=== PATIENT | male | born 1965 | race Caucasian/White ===

== ENCOUNTER 2018-09-24 14:37 | Inpatient (IN) ==
--- NOTE | 2018-09-24 16:00 | Diag Imaging Result Doc PS360 ---
EXAM: CHEST-PORTABLE 09/24/2018 HISTORY: weak TECHNIQUE: AP upright chest COMMENT: There is no evidence of acute cardiac or pulmonary disease and there are no previous studies available for comparison. IMPRESSION: No evidence of acute disease. Electronically signed by Andrea Goldberg 09/24/2018 3:58 PM
[2018-09-24 16:02] LABS: BASO# 0.01 X1000 (0.0-0.2); BASO% 0.1 % (0.0-0.8); EOS# 0.13 X1000 (0.0-0.7); EOS% 0.7 % (0.0-10.0); HEMOGLOBIN 13.2 g/dL (14.0-18.0); IMM GRAN# 0.14 X1000 (0.0-0.04); IMM GRAN% 0.7 % (0.0-0.5); LYMPH# 2.13 X1000 (1.2-3.4); LYMPH% 10.8 % (20.5-51.1); MCH 28.7 PG (27-31); MCHC 34.7 g/dL (33-37); MCV 82.6 FL (81-99); MONO% 10.1 % (1.7-9.3); MPV 9.5 FL (7.4-10.4); NEUT# 15.36 X1000 (1.4-6.5); NEUT% 77.6 % (42.2-75.2); PLT 285 X1000 (130-400); RDW 11.7 % (11.5-14.5); WBC 19.77 X1000 (4.8-10.8)
--- NOTE | 2018-09-24 16:02 | Diag Imaging Result Doc PS360 ---
EXAM: THORACIC SPINE 09/24/2018 HISTORY: injur TECHNIQUE: Thoracic spine AP and lateral four views COMMENT: There are bridging osteophytes throughout the thoracic spine. The pedicles appear to be intact. There is no evidence of fracture or subluxation. There is a large soft tissue gas collection posteriorly seen on the lateral view. This is at least 10 cm in diameter. IMPRESSION: Posterior soft tissue gas collection. Degenerative disc disease. No evidence of acute bony abnormality. Electronically signed by Andrea Goldberg 09/24/2018 3:59 PM
--- NOTE | 2018-09-24 16:10 | Diag Imaging Result Doc PS360 ---
EXAM: CT HEAD W/O CONTRAST 09/24/2018 HISTORY: syncope TECHNIQUE: This exam was performed using automated exposure control, adjustment of mA or kV according to patient size, and/or use of iterative reconstruction technique. COMMENT: There is no evidence of mass effect, bleed, or abnormal extra-axial fluid collection. The visualized paranasal sinuses are clear. The calvarium is intact. IMPRESSION: No evidence of acute intracranial disease. Electronically signed by Andrea Goldberg 09/24/2018 4:08 PM
[2018-09-24 16:21] LABS: ESTIMATED GFR > 60
[2018-09-24 16:22] LABS: AGAP 13; ALB/GLOB RATIO 0.7; ALBUMIN 2.6 g/dL (3.5-5.0); ALKALINE PHOSPHATASE 103 U/L (32-122); BUN 9 mg/dL (8-22); CALCIUM 8.1 mg/dL (8.8-10.2); CHLORIDE 87 mmol/L (98-107); CK PROFILE 214 U/L (24-204); COSMO 259; CREATININE 0.8 mg/dL (0.7-1.2); GLUCOSE 232 mg/dL (70-104); GOT 18 U/L (10-34); GPT 11 U/L (10-44); POTASSIUM 3.4 mmol/L (3.5-5.1); SODIUM 126 mmol/L (136-145); TCO2 26 mmol/L (25-35); TOTAL BILIRUBIN 0.76 mg/dL (0.20-1.00); TOTAL PROTEIN 6.3 g/dL (6.3-8.3)
[2018-09-24 16:57] LABS: CK INDEX 0.6 (0.0-2.5); CK-MB 1.34 ng/mL (0.0-5.0)
--- NOTE | 2018-09-24 16:59 | EKG Report ---
Test Performed on : 09/24/2018 3:07:29 PM Test Reason : ED. No order in [place] Blood Pressure : / mmHG Vent. Rate : 102 BPM Atrial Rate : 102 BPM P-R Int : 126 ms QRS Dur : 094 ms QT Int : 358 ms P-R-T Axes : 037 -09 023 degrees QTc Int : 466 ms Sinus tachycardia. Otherwise normal ECG No previous ECGs available Unconfirmed Result
[2018-09-24] MEDS ORDERED: VANCOMYCIN 1 GM/NS 1 GM/250 ML IVPB IV ONE ×2 (17:03→22:00)
[2018-09-24] MEDS ORDERED: NS 1,000 ML IV ONE (17:11)
[2018-09-24 17:34] LABS: URINE SOURCE CLEAN CATCH
[2018-09-24 17:44] LABS: BILIRUBIN URINE NEGATIVE (NEGATIVE); BLOOD URINE MODERATE (NEGATIVE); COLOR YELLOW; GLUCOSE URINE TRACE mg/dL (NEGATIVE); KETONE URINE NEGATIVE (NEGATIVE); LEUKOCYTES URINE NEGATIVE (NEGATIVE); NITRITE URINE NEGATIVE (NEGATIVE); PROTEIN URINE TRACE mg/dL (NEGATIVE); SP GRAVITY URINE 1.015; TURBIDITY URINE CLEAR (CLEAR); UROBILINOGEN URINE 12 mg/dL (NORMAL)
[2018-09-24 17:46] LABS: UR EPITHELIAL CELLS <10 /HPF (<10); URINE BACTERIA NEGATIVE /HPF; URINE RBC <10 /HPF (<10); URINE WBC <10 /HPF (<10)
[2018-09-24] MEDS ORDERED: XYLOCAINE 1% ONE (17:48)
[2018-09-24] MEDS ORDERED: ZOSYN 3.375 GM in NS 50 ML IV ONE (17:50)
--- NOTE | 2018-09-24 18:05 | Diag Imaging Result Doc PS360 ---
EXAM: CT THORAX/ABD/PELVIS W/CON - 09/24/2018 HISTORY: abscess TECHNIQUE: CT thorax and abdomen/pelvis with intravenous contrast COMPARISON: None. FINDINGS: CT thorax: There is a subcutaneous fluid and gas collection at the back which has its epicenter near the midline. This measures approximate 6.4 cm in maximum AP dimension by 11.5 cm in transverse dimension. This is compatible with abscess. This begins superiorly at approximately the T6 level and extends inferiorly to approximately the T10 level. There is no obvious involvement of the underlying thoracic spine The lungs appear clear. There is no pleural effusion or pneumothorax identified. There is no mediastinal or hilar adenopathy identified. CT abdomen/pelvis: There are no substantial abnormalities of the liver, spleen, adrenal glands, or pancreas identified. There are no calcified gallstones or pericholecystic inflammation identified. The bilateral kidneys enhance homogeneously. There is no hydronephrosis. There are nonspecific small retroperitoneal lymph nodes. There are lumbar spine degenerative changes noted. There is no evidence of bowel obstruction. There is mild colonic diverticulosis. There is no evidence of diverticulitis. There is no intra-abdominal abscess identified. There is no free air or free fluid identified. There is mild subcutaneous edema at the posterior midline. There is no evidence of bowel obstruction. IMPRESSION: CT thorax: Approximately 6.4 cm in AP dimension by 11.5 cm in transverse dimension abscess in posterior subcutaneous tissues (back). This has its epicenter near the midline and extends from approximately the T6 level to the T10 level. There is no other evidence of acute disease within the thorax. CT abdomen/pelvis: Mild subcutaneous edema at posterior midline. Nonspecific small retroperitoneal lymph nodes. Mild uncomplicated colonic diverticulosis. No other evidence of acute disease within the abdomen/pelvis. This exam was performed using automated exposure control, adjustment of mA or kV according to patient size, and/or use of iterative reconstruction technique. Electronically signed by Tyler Coats 09/24/2018 6:02 PM
--- NOTE | 2018-09-24 18:27 | PROVIDER DOCUMENTATION ---
This chart was entered by Stacey Tello Scribe, acting as scribe for Robbie Camarillo MD. HPI-General Adult - General Chief Complaint: Syncope Stated Complaint: SYNCOPE Time Seen by Provider: 09/24/18 15:02 Source: patient - History of Present Illness -Gen Adult Nature of Presenting Problems: 53 yowm presents to the ed via pov from neighbors that checked on him today. pt sts he has had x2 syncopal episodes the 1st one on friday and the 2nd on friday night. pt lives alone and sts after second syncopal episode pt went to bed and has been just laying down. pt denies any medical hx and sts he takes no medications. pt on exam has foul odor about him and has bruising noted to rt thoracic back that looks to be healing. pt denies back pain on exam and c/o weakness and fatigue. Location of Pain/Injury: reports: generalized (weakness) Quality of Pain: reports: other (denies pain cc weakness) Severity: reports: moderate Onset/Duration: reports: 6 days ago Timing: reports: still present, intermittent Context/Activities at Onset: reports: light activity Modifying Factors: improves with: nothing Associated Symptoms: reports: fatigue, fever/chills (100.4), loss of appetite, syncope (x2), weakness. denies: back/neck pain, chest pain, cough, diaphoresis, diarrhea, dizziness, EENT symptoms, nausea, shortness of breath, vomiting Similar Symptoms Previously?: No Recently seen or treated by another doctor?: No Review of Systems - Adult - REVIEW OF SYSTEMS - ADULT Constitutional: reports: see HPI, chills, fever, fatique Eyes: reports: no symptoms reported Ears, Nose, Mouth & Throat: reports: no symptoms reported Cardiovascular: reports: syncope. denies: chest pain, palpitations Respiratory: denies: shortness of breath, wheezing Gastrointestinal: reports: poor appetite. denies: abdominal pain, diarrhea, nausea, vomiting Genitourinary: reports: no symptoms reported Musculoskeletal: denies: back pain, neck pain Integumentary: reports: no symptoms reported Neurological: reports: see HPI, loss of balance, syncope. denies: ataxia, dizziness/vertigo, headache/migraines, slurred speech, tremors Psychiatric: reports: no symptoms reported Endocrine: reports: no symptoms reported Hematologic/Lymphatic: reports: no symptoms reported Allergic/Immunologic: reports: no symptoms reported All Other Systems: Reviewed and Negative Past History - Adult - PAST MEDICAL HISTORY-ADULT Review of Records: reports: Old Records Reviewed, Nursing Assessment Review, Med ications Reviewed, Social history reviewed & non-contributory. Major Childhood Illnesses: reports: denies history Cardiovascular: reports: denies history Respiratory: reports: denies history Gastrointestinal: reports: denies history Genitourinary: reports: denies history Musculoskeletal: reports: denies history Hand Dominance: Right Handed Neurological: reports: denies history Psychiatric: reports: denies history Endocrine/Immune: reports: denies history Other Conditions: reports: denies history - PRIOR SURGERIES/PROCEDURES Surgical/Procedure History: reports: none (pt denies any medical hx or sx) - IMMUNIZATION STATUS Childhood Immunizations: See Nurse Assessment Flu Vaccine: See Nurse Assessment - FAMILY HISTORY Family History: reviewed, not pertinent - SOCIAL HISTORY Smoking: quit greater than 1 year Substance Use: denies Alcohol Use Frequency: never Living Situation: alone Physical Exam-General - PHYSICAL EXAM-ADULT Initial Vital Signs Reviewed: Yes (fever-100.4 HR-107 ) - CONSTITUTIONAL General Appearance: alert, mild distress, obese, anxious (tearful) - EYES Eyes: PERRL/EOMI, pink conjunctivae - HEAD, EARS, NOSE, MOUTH & THROAT HENMT: moist mucous membranes, dental decay - NECK Neck: full range of motion, normal inspection - RESPIRATORY Respiratory: chest non-tender, lungs clear, normal breath sounds - CARDIOVASCULAR Cardiovascular: normal peripheral pulses, tachycardia (107) - GASTROINTESTINAL (ABDOMEN) Abdominal Exam: normal bowel sounds, non tender, soft, no organomegaly, no pulsatile mass - LYMPHATIC Lymphatic: no adenopathy - MUSCULOSKELETAL Back Exam: no CVA tenderness, no vertebral tenderness, ecchymosis (thoracic) Extremity: normal range of motion, normal inspection, no calf tenderness, normal capillary refill - SKIN Integumentary: normal turgor, warm/dry, pallor - NEUROLOGIC Neurologic: grossly normal, no motor/sensory deficits - PSYCHIATRIC Psych/Mental Status: normal mood/affect, normal thought content, normal thought process, oriented x 3, tearful Progress - PLAN OF CARE/RESULTS Progress/Plan/Lab Results: Vital Signs - 8 hr 09/24/18 14:40 Temperature 100.4 F H Pulse Rate 107 H Respiratory Rate 21 Blood Pressure 127/79 O2 Sat by Pulse Oximetry 96 Result Diagrams: 09/24/18 15:21 09/24/18 15:21 - REASSESSMENT Reassessment #1 Time Reassessed: 16:17 (pt is resting in bed) Status: improving Reassessment #3 Time Reassessed: 17:31 (pt unchanged) Status: unchanged Reassessment Comment: dr francisco at bedside Reassessment #2 Time Reassessed: 17:14 (still resting in bed) Status: unchanged - EKG 1 Time of EKG reading by physician:: 15:07 EKG Read and Signed by:: Robbie Camarillo EKG Interpretation (*Must complete 3 of following elements*): Normal Rate: 102 Rhythm: sinus tachycardia [place]: normal QRS: normal [place] Interval: normal ST Wave: normal - XRAY 1 XRAY: Bilateral XRAY Study: Thoracic Spine Impression: See EMR Report (EXAM: THORACIC SPINE 09/24/2018 HISTORY: injur TECHNIQUE: Thoracic spine AP and lateral four views COMMENT: There are bridging osteophytes throughout the thoracic spine. The pedicles appear to be intact. There is no evidence of fracture or subluxation. There is a large soft tissue gas collection posteriorly seen on the lateral view. This is at least 10 cm in diameter. IMPRESSION: Posterior soft tissue gas collection. Degenerative disc disease. No evidence of acute bony abnormality. Electronically signed by Andrea Goldberg 09/24/2018 3:59 PM 09/24/18 1460 Interpreting Physician: Andrea Goldberg MD Dictated Date/Time: 09/24/18 3529 cc: Robbie Camarillo MD; None,PCP) 2 XRAY: Bilateral XRAY Study: Chest Impression: See EMR Report (EXAM: CHEST-PORTABLE 09/24/2018 HISTORY: weak TECHNIQUE: AP upright chest COMMENT: There is no evidence of acute cardiac or pulmonary disease and there are no previous studies available for comparison. IMPRESSION: No evidence of acute disease. Electronically signed by Andrea Goldberg 09/24/2018 3:58 PM 09/24/18 8708 Interpreting Physician: Andrea Goldberg MD Dictated Date/Time: 09/24/18 8342 cc: Robbie Camarillo MD; None,PCP) - CT/MRI 1 CT Study: Head Impression: See EMR Report (EXAM: CT HEAD W/O CONTRAST 09/24/2018 HISTORY: syncope TECHNIQUE: This exam was performed using automated exposure control, adjustment of mA or kV according to patient size, and/or use of iterative reconstruction technique. COMMENT: There is no evidence of mass effect, bleed, or abnormal extra-axial fluid collection. The visualized paranasal sinuses are clear. The calvarium is intact. IMPRESSION: No evidence of acute intracranial disease. Electronically signed by Andrea Goldberg 09/24/2018 4:08 PM 09/24/18 1608 Interpreting Physician: Andrea Goldberg MD Dictated Date/Time: 09/24/18 1607 cc: Robbie Camarillo MD; None,PCP) 2 CT Study: other (thoracic back) Impression: See EMR Report (waiting on results) - CONSULTS/PCP/HOSPITALIST Notification #1 *Consult/PCP/Hospitalist*: dr francisco sx Time Discussed: 17:13 Reason/Comments: phone consult Consult Disposition: Will see in ED Time Discussed: 18:00 Reason/Comments: Hospitalist Consult Disposition: Will see in ED Departure - Departure Date of Disposition Decision: 09/24/18 Time of Disposition Decision: 18:00 DIAGNOSIS: Abscess, Weakness Fever Qualifiers: Encounter type: initial encounter Disposition: ADMITTED INPATIENT 09 Certified Medical Emergency: Emergent Condition: Serious Referrals and Follow-Ups: None,PCP [Primary Care Provider] - - Critical Care Note This patient required my direct & personal management of CC.: No Attestation - Physician/ AGUSTIN Attestation Patient care was provided by Advanced Practice Provider:: No The physician spent face to face time with patient:: Yes Advanced Practice Provider documentation review:: Supervising physician onsite and consulted in the evaluation and care of this patient. The physician did have a face to face encounter with the patient. This chart was documented by the indicated scribe, (Stacey Tello Scribe) and accurately reflects the services I performed and decisions made by me, Robbie Camarillo MD, as attested by the provider's signature.
[2018-09-24] MEDS ORDERED: ZOFRAN IV PRN (20:45)
[2018-09-24] MEDS ORDERED: VANCOMYCIN IV PER PHARMACY MISC SCH (20:45)
[2018-09-24] MEDS ORDERED: TYLENOL PO PRN (20:45)
[2018-09-24] MEDS ORDERED: CLINDAMYCIN 900 MG/D5W 900 MG/50 ML IVPB IV ONE (21:00)
[2018-09-24] MEDS ORDERED: CLINDAMYCIN 900 MG/NS 900 MG/50 ML IVPB IV ONE (21:00)
[2018-09-24] MEDS: NS 1,000 ML IV SCH (21:33)
[2018-09-24] MEDS: POTASSIUM CHLORIDE 20 MEQ/SWI 20 MEQ/100 ML IVPB IV SCH (21:33)
[2018-09-24] MEDS: HUMALOG SUBQ SCH (21:33)
--- NOTE | 2018-09-24 22:04 | HISTORY AND PHYSICAL ---
CHIEF COMPLAINT: Syncope. HISTORY OF PRESENT ILLNESS: This is a 53-year-old gentleman who reports being outside doing yard work in the heat Friday with very little to drink. He had a sudden syncopal episode. States since then he has had generalized weakness. Despite this, he went to work at his new job Friday. He was outside pressure washing in the heat with very little water or fluid intake. He stated he was also working in a building with no air conditioning. He and another co-worker "fell out." Since then, he has got progressively weaker. Today, he states that a co-worker came to check on him, found him lying around, having trouble getting out of bed and insisted he come to the emergency room. He presented with a heart rate of 107 and a temperature of 100.[address] of the head revealed no evidence of intracranial disease. He did have a thoracic spine x-ray which showed an area with posterior soft tissue gas collection. CT of the chest, abdomen, pelvis was performed which revealed a 6.4 cm x 11.5 abscess in the posterior subcutaneous tissues in the back with its epicenter near the midline and extends from T6 to T10. CT of the abdomen and pelvis reveal nonspecific small retroperitoneal lymph nodes. He was evaluated by Dr. Anderson who lanced and performed a bedside I and D. The patient tolerated well. Blood cultures were obtained. He has been started on vancomycin, Zosyn and clindamycin along with IV hydration. He was given vancomycin, Zosyn and clindamycin in the emergency room along with a liter bolus and he is being admitted for further evaluation and treatment. PAST MEDICAL HISTORY: He denies. SURGICAL HISTORY: Denies. SOCIAL HISTORY: He denies alcohol, tobacco, or illicit drug use. ALLERGIES: The patient denies. HOME MEDICATIONS: He denies. Note the patient has had not had insurance for quite some time. He has not seen a physician in many years. REVIEW OF SYSTEMS: Discussed with the patient with pertinent positives stated in the HPI. He denied any dizziness, chest pain, palpitations, any shortness of breath, cough, fever, chills, recent weight loss or weight gain, nausea, vomiting, diarrhea, constipation, any black or bloody vomitus or stools, any hematuria, dysuria, frequency, urgency. PHYSICAL EXAMINATION: GENERAL: This is a 53-year-old gentleman who is sitting up in the bed in no distress. VITAL SIGNS: Blood pressure is 127/79 with a heart rate of 107, respirations are 22, temperature is 100.4 degrees oral with room air saturations 96%. EYES: Pupils equal, round, react to light. EOMs are intact. Sclerae are anicteric. HEENT: Head is normocephalic, atraumatic. Mucous membranes are moist. NECK: Supple with trachea midline. CARDIOVASCULAR: Regular rate and rhythm. S1 and S2 are appreciated. He has no lower extremity edema. Calves are nontender to palpation bilateral with peripheral pulses palpable x4 extremities. PULMONARY: Breath sounds are clear. No increased work of breathing noted. Chest rises and falls symmetric with respiration. CHEST WALL: Nontender to palpation. GASTROINTESTINAL: Abdomen is soft, nontender, nondistended with bowel sounds in all 4 quadrants. GENITOURINARY: He has no CVA or suprapubic tenderness. NEUROLOGIC: He is alert and oriented x3. SKIN: Warm and dry. He does have an area to he has midback at approximately T5 to T10 or 11 that is noted to be ecchymotic. It is firm. LABORATORIES: WBC is 19.7 with hemoglobin 13.2, hematocrit 38, platelets 285,000. Sodium is 126, potassium 3.4, BUN 9, creatinine 0.8 with glucose of 232. Troponin is negative. Urinalysis reveals moderate blood although he has got less than 10 microscopic red blood cells, white blood cells and epithelial cells. Blood cultures are pending. ASSESSMENT AND PLAN: 1. Syncope. Causes multifactorial. The patient was working out in the heat. This could have been heat exhaustion. He also was found to have an abscess. White count sepsis could play a part. He will be placed on telemetry. We will monitor. We will get an echocardiogram in the morning. We will continue trend troponins. 2. Post back abscess. Dr. Anderson has been consulted. We will consult Dr. Aponte. We will continue vancomycin, Zosyn and clindamycin for now and further antibiotics will be culture driven and per Dr. Aponte. 3. Hyponatremia. We will supplement this. Continue with IV fluids and recheck labs in the morning. 4. Hyperglycemia. The patient states that he has never had a diagnosis of diabetes. We will check a hemoglobin A1c in the morning and trend his labs. 5. Generalized weakness. We will consult Physical Therapy. Further treatments pending hospital course. Dictated by KATHRINE Estevez for Cheo Munoz MD cc: KATHRINE Estevez
--- NOTE | 2018-09-25 00:49 | GENERAL SURGERY CONSULTATION ---
DATE: 09/24/2018 REQUESTING PHYSICIAN: Emergency Department. REASON FOR CONSULTATION: Back abscess. HISTORY OF PRESENT ILLNESS: A 53-year-old gentleman who came in with multiple syncopal episodes since Friday, when he was outside working. He passed out 2 times and he was found by his family member and brought to the emergency department. He also developed some swelling in his back that has been going on for several weeks. They worked him up and a chest x-ray initially showed an air- fluid level in his back, and he had a CT scan that showed an abscess. I was asked to weigh an opinion. PAST MEDICAL HISTORY: None reported. PAST SURGICAL HISTORY: None. SOCIAL HISTORY: Former smoker. ALLERGIES: None recorded. CURRENT MEDICATIONS: List being compiled. FAMILY HISTORY: Reviewed with the patient and noncontributory. REVIEW OF SYSTEMS: A full 10-point review of systems obtained and negative, except those specified in HPI. PHYSICAL EXAMINATION: Vital Signs: Patient is currently febrile, temperature of 100.4 degrees. Pulse 107, blood pressure 127/69, O2 saturation 96% on room air. General: No acute distress, but appears sick. A male, looks stated age. HEENT: Normocephalic, atraumatic. Pupils equal, round, reactive to light. Mucous membranes moist. Oropharynx benign. Neck: Supple. Trachea midline. Cardiovascular: Some mild tachycardia. Lungs: Grossly clear. Abdomen: Soft, nontender, nondistended. Extremities: Moves all extremities. Skin: Wound and swelling noted to the midback. No real erythema to the skin. Some bruising and ecchymosis noted. Tender to palpation. Vascular: All extremities perfused. Neurologic: Grossly intact. LABORATORY AND DIAGNOSTIC DATA: White blood count is 19, hematocrit 38, platelet count 285,000. Sodium is 126, potassium is 34, chloride is 87, glucose 232. CT scan independently reviewed and radiology report reviewed. ASSESSMENT AND PLAN: A 53-year-old gentleman with back abscess. 1. Back abscess. At this time, we will plan on drainage at the bedside. Discussed with the patient the risks, benefits, and alternatives, and we will proceed. The patient needs to be admitted by the hospitalist given his hyponatremia. We will get the hospitalist to admit him and put him on IV antibiotics. 2. Hyponatremia. At this time, needs to be resuscitated. We will follow with the hospitalist. cc: Santos Anderson MD
--- NOTE | 2018-09-25 00:53 | OPERATIVE NOTE ---
PROCEDURE DATE: 09/24/2018 PREOPERATIVE DIAGNOSIS: Back abscess. POSTOPERATIVE DIAGNOSIS: Intramuscular back abscess. PROCEDURE: Incision and drainage of intramuscular back abscess measuring 11.5 cm. SURGEON: Santos Anderson MD. PHOTOENGRAVING FINISHER: None. ANESTHESIA: Local administered by the surgeon. FINDINGS: Purulence drained and sent for culture. BRIEF HISTORY: A 53-year-old male noted to have a back abscess on imaging. It was felt that he would benefit from drainage. The risks, benefits, and alternatives were discussed. All questions answered. DESCRIPTION OF PROCEDURE: After informed consent was obtained, patient remained in the ED bed. His back was prepped and draped in sterile fashion. Using a local anesthetic, we anesthetized the skin. After a formal time-out, we made an initial cruciate incision to enter into the abscess cavity. We used blunt dissection with hemostat probe and a pop into the capsule. We drained a significant amount of purulence, which we sent for culture. We continued to probe the area and drained more purulence. I stick my finger in and broke up all loculations. We continued to drain a significant amount of purulence. I was able to explore essentially all the cavity with my finger. It did not seem to extend down to the bone. We then placed half-inch iodoform into the wound and placed a sterile dressing. The patient tolerated the procedure and remained in the ER. cc: Santos Anderson MD
[2018-09-25] MEDS: ZOSYN 3.375 GM in NS 50 ML IV SCH ×2 (02:34→08:33)
[2018-09-25] MEDS: NORCO-7.5 PO PRN ×2 (02:35→22:37)
[2018-09-25] MEDS: CLINDAMYCIN 900 MG/D5W 900 MG/50 ML IVPB IV SCH ×2 (03:31→08:37)
[2018-09-25] MEDS: POTASSIUM CHLORIDE 20 MEQ/SWI 20 MEQ/100 ML IVPB IV SCH (04:31)
[2018-09-25] MEDS: HUMALOG SUBQ SCH ×4 (06:44→21:52)
[2018-09-25 09:03] LABS: BASO# 0.03 X1000 (0.0-0.2); BASO% 0.2 % (0.0-0.8); EOS# 0.06 X1000 (0.0-0.7); EOS% 0.3 % (0.0-10.0); HEMATOCRIT 37.5 % (42.0-52.0); HEMOGLOBIN 12.6 g/dL (14.0-18.0); IMM GRAN# 0.14 X1000 (0.0-0.04); IMM GRAN% 0.7 % (0.0-0.5); LYMPH# 2.72 X1000 (1.2-3.4); LYMPH% 14.4 % (20.5-51.1); MCH 28.5 PG (27-31); MCHC 33.6 g/dL (33-37); MCV 84.8 FL (81-99); MONO# 1.43 X1000 (0.11-0.59); MONO% 7.6 % (1.7-9.3); MPV 9.4 FL (7.4-10.4); NEUT# 14.45 X1000 (1.4-6.5); NEUT% 76.8 % (42.2-75.2); PLT 305 X1000 (130-400); RBC 4.42 XMIL (4.7-6.1); RDW 12.1 % (11.5-14.5); WBC 18.83 X1000 (4.8-10.8)
[2018-09-25 09:17] LABS: HEMOGLOBIN A1C 9.1 % (4.8-6.0)
[2018-09-25 09:20] LABS: AGAP 15; ALB/GLOB RATIO 0.9; ALBUMIN 2.6 g/dL (3.5-5.0); ALKALINE PHOSPHATASE 92 U/L (32-122); BUN 12 mg/dL (8-22); CALCIUM 7.5 mg/dL (8.8-10.2); CHLORIDE 94 mmol/L (98-107); COSMO 268; CREATININE 0.9 mg/dL (0.7-1.2); ESTIMATED GFR > 60; GLUCOSE 171 mg/dL (70-104); GOT 20 U/L (10-34); GPT 11 U/L (10-44); POTASSIUM 4.3 mmol/L (3.5-5.1); SODIUM 132 mmol/L (136-145); TCO2 23 mmol/L (25-35); TOTAL BILIRUBIN 0.69 mg/dL (0.20-1.00); TOTAL PROTEIN 5.5 g/dL (6.3-8.3)
[2018-09-25] MEDS: VANCOMYCIN 2,000 MG in NS 500 ML IV SCH ×2 (10:25→22:36)
[2018-09-25] MEDS: NS 1,000 ML IV SCH ×2 (12:16→15:37)
--- NOTE | 2018-09-25 14:36 | GENERAL SURGERY PROGRESS NOTE ---
DATE: 09/25/2018 SUBJECTIVE: Patient seems to be feeling better as far as the back is concerned. OBJECTIVE: Vital Signs: Patient is currently afebrile. His blood pressure most recently is 96/45, although his heart rate is in the 80s. He seems to be doing fine. HEENT: Normocephalic, atraumatic. Pupils equal, round, reactive to light. Mucous membranes moist. Oropharynx benign. Neck: Supple, trachea midline. Cardiovascular: Regular rate and rhythm. Lungs: Grossly clear. Abdomen: Soft, nontender, nondistended. Back: Wound with packing in place. Otherwise looks improved. Extremities: Moves all extremities. Neurologic: Grossly intact. Skin: As noted above. Vascular: All extremities perfused. LABORATORY: None this morning as of yet. ASSESSMENT/PLAN: 53-year-old gentleman status post incision and drainage of intramuscular back abscess. 1. Status post drainage. At this time, continue IV antibiotics as done by the hospitalist. He is on vancomycin and Zosyn and clindamycin. 2. Can likely stop 1 of those antibiotics but will defer to infectious disease has been consulted. 3. Otherwise, continue current treatment and defer to the hospitalist who has medical management. cc: Santos Anderson MD
--- NOTE | 2018-09-25 20:47 | ECHO REPORT ---
ORDER DATE: 09/24/2018 INTERPRETING PHYSICIAN: Tab Lancaster MD. REQUESTING PHYSICIAN: Cheo Munoz MD. INDICATIONS: Syncope, abscess, sepsis, morbid obesity. M-MODE MEASUREMENTS: Left ventricle end diastole: 5.6 cm. Left ventricle end systole: 3.9 cm. Posterior wall: 1.1 cm. Interventricular septum: 1.1 cm. Left atrium: 3.8 cm. Aortic root diameter: 3.2 cm. The study was difficult. Optison was utilized to maximize visualization of the endocardium. SUMMARY OF 2-DIMENSIONAL IMAGIN. The left ventricular chamber appears to be mildly enlarged. Left ventricular systolic function appears to be at the lower limits of normal and perhaps mildly decreased in the range of 50-55%. 2. The atria appear to be normal. Aortic valve was normal. Color flow mapping unremarkable. 3. The tricuspid valve looks normal. Color flow mapping unremarkable. 4. Pulmonary pressure is normal. 5. Mitral valve is normal. Color flow mapping unremarkable. 4. The pulse wave Doppler of mitral inflow is normal. 5. The tissue Doppler of septal and lateral mitral annulus is also normal. 6. There is no diastolic dysfunction. 7. The pulmonary valve is unremarkable. 8. There is no pericardial effusion, mass or thrombus. Clinical correlation is recommended. cc: Tab Lancaster MD [facility]
--- NOTE | 2018-09-25 21:38 | PROGRESS NOTE ---
DATE: 09/25/2018 INTERVAL HISTORY: The patient reports significant improvement in back discomfort with drainage of abscess and antibiotics overnight. No further dizziness, lightheadedness, or syncope. No events on telemetry overnight. No further fevers since just after arrival. Initial blood cultures are positive for gram-positive cocci. REVIEW OF SYSTEMS: A 12 point review of systems is negative except as per Interval History. LABS: WBC 18.8, hemoglobin 12.6, hematocrit 37.5, platelets 305,000. Sodium 132, potassium 4.3, bicarb 23, glucose 171 to 215. Hemoglobin A1c 9.1. VITAL SIGNS: T-max is 99.6 degrees, pulse 83, respirations 20, blood pressure 103/56, O2 saturation 98% on room air. PHYSICAL EXAMINATION: General: No acute distress, obese. Vital Signs: As above. HEENT: Normocephalic, atraumatic. Moist mucous membranes. No cervical adenopathy. Cardiovascular: Regular rate and rhythm. No murmurs noted. Pulmonary: Clear to auscultation bilaterally. No rhonchi, rales, or wheezes noted. Abdomen: Obese, soft, nontender, nondistended. Bowel sounds positive. Extremities: Peripheral pulses decreased, but intact. No clubbing, cyanosis. Neurologic: Cranial nerves grossly intact. Mild global weakness, somewhat improved. No focal deficits identified. Psychiatric: Normal mood and affect. Awake, alert, oriented x3. Skin: Area of I and D in the mid back with dressing, with fairly significant sanguineous to purulent drainage. Still some mild induration around the area. ASSESSMENT AND PLAN: 1. Syncope, likely multifactorial, with dehydration and sepsis. No further dizziness or other issues with hydration and antibiotics. Cardiac workup unremarkable. 2. Large back abscess. On imaging, appeared to extend almost to the spine, but after surgical evaluation, Surgery does not feel that it extended to the bone. Still with significant drainage. Started initially on vancomycin, Zosyn, and clindamycin. Based on culture data, will likely discontinue clindamycin and possibly Zosyn, depending on Infectious Disease recommendations. 3. Gram-positive bacteremia. Patient with initial blood cultures growing gram- positive cocci. Suspect this will end up being staphylococcus, but will see what eventually speciates. Repeat blood culture cultures in the morning and monitor. 4. Hyponatremia. Likely related to dehydration. Improving with intravenous fluids. Continue intravenous fluids and monitor. Improving at an appropriate rate. 5. Diabetes. New diagnosis. A1c 9.1. Discussed this new diagnosis with the patient. We will likely discharge on metformin and possibly a second oral agent. 6. Generalized weakness. Somewhat improved with fluid and treatment of sepsis as above. Physical Therapy consulted. We will see how he does. If he continues to improve, then may be able to go home. Otherwise, will consider rehab. 7. Morbid obesity. Recommended diet and exercise. 8. Hypokalemia, improved with repletion. Monitor. [facility]
--- NOTE | 2018-09-25 22:04 | INFECTIOUS DISEASE CONSULT REP ---
DATE: 09/25/2018 CONCLUSION: Mr. Haines has gram-positive cocci growing in 1 out of 2 of his blood cultures, as well as gram-positive cocci noted to the Gram stain of the culture to his back. He is status post incision and drainage of an intramuscular back abscess by Dr. Anderson, which was noted to have an extensive sized cavity. RECOMMENDATIONS: He has been started on IV vancomycin per pharmacy dosing, as well as IV clindamycin and Zosyn. At this point, due to the presence of gram-positive cocci both in the Gram stain and in the blood culture, we will discontinue Zosyn and clindamycin, and continue IV vancomycin as ordered. The blood culture is positive in 1 out of 2, so this may possibly be a contaminant, or it may be a staphylococcus which is most often seen in this type of wound. We will await the final cultures and recheck blood work Friday morning. These plans have been discussed with and recommended by Dr. Aponte. DISCUSSION: Mr. Haines states he has been feeling weak and lightheaded for the past week, and has had some near syncopal episodes which have eventually brought him into the hospital. He admits to not having seen any doctors for about 10 years. He states that several weeks ago, he started noticing a swollen area to his back. However, he had been ignoring it. PAST MEDICAL HISTORY/REVIEW OF SYSTEMS: Constitutional: The patient has been weak, dizzy, and lightheaded recently. He has had no falls or traumas. HEENT: No headaches or sinus pain. He does have some vision problems with blurriness. Denies any issues with hearing or tinnitus. Endocrine: He denies any history of diabetes or thyroid issues. Cardiovascular: Denies any chest pain, palpitations, or shortness of breath. Respiratory: He has had occasional smoker's cough. States he quit smoking a few months ago with a 30 pack-year history. No wheezing or pain with deep breathing. Gastrointestinal: He denies any nausea, vomiting, diarrhea, or constipation. He does have infrequent bouts of acid reflux. : He states he has developed incontinence, but no hematuria, dysuria, or history of urinary tract infection. Musculoskeletal: He denies any arthritis, joint or muscle pains, but does have occasional lower back pain after a long shift at work. Psychiatric: He denies any anxiety, depression, or psychiatric diagnoses. Hematologic: He denies any history of iron deficiency or blood disorders. Neurologic: He denies any seizures, stroke, or mini stroke. MEDICAL HISTORY: Positive for morbid obesity. He does have a hemoglobin A1c elevation with a new diagnosis of diabetes mellitus, which has probably been present in the long- term. PAST SURGICAL HISTORY: He has had a cyst removed from his scalp several years ago. INFECTIOUS DISEASE: He has had walking pneumonia in the past after having the flu several years ago. No history of urinary tract infection or bacteria which was resistant to antibiotics. SOCIAL HISTORY: He is a 30 pack-year smoker who quit several months ago. He denies any alcohol or illicit drug use. 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 FAMILY HISTORY: His father of a stroke. His mother has dementia. LABORATORY AND X-RAY: Today, his white count is 18.83, hemoglobin 12.6, platelet count 305,000. Creatinine is 0.9. Estimated GFR is greater than 60. Hemoglobin A1c is 9.1. Total bilirubin is 0.69, AST 20, ALT 11, alkaline phosphatase 92. There are blood cultures pending. One of 2 has shown gram-positive cocci. Gram stain of the back drainage shows gram-positive cocci with white blood cells 2+. Culture is pending. EKG shows sinus tachycardia. Chest, abdomen, and pelvis CT showed clear lungs with subcutaneous fluid and gas collection to the back. Head CT also showed no evidence of acute intracranial disease. ALLERGIES: No known allergies. HOME MEDICATIONS: The patient states he has no prescriptions, but takes occasional BC powder at home for aches and pains. PHYSICAL EXAMINATION: Vital Signs: Temperature is 97.5 degrees, pulse rate 75, respiratory rate 18, blood pressure 111/68, O2 saturation is 96% on room air. General: This is a morbidly obese, chronically ill-appearing, middle-aged gentleman. He is lying in the bed on his right lateral side, currently in no acute distress. HEENT: Atraumatic, normocephalic. Oral mucous membranes are pink and moist. Conjunctivae are pink. Neck: Supple. Trachea is midline. Cardiovascular: Heart rate and rhythm are regular. Normal sinus rhythm on the monitor. Respiratory: Lung sounds are clear to auscultation bilaterally. No work of breathing is noted. Abdomen: Soft, obese, and nontender. Bowel sounds are active. Integumentary: Skin is warm and dry. I peeled back the dressing to the right upper back where there is an incision. I have taken a culture and a moderate amount of blood and pus came out of the abscess, which is very tender to the patient. Neurologic: He is awake, alert and oriented. Able to ambulate independently. Thank you for allowing us to see Mr. Haines. Dictated by KATHRINE Gardner for Juan Miguel Aponte MD cc: Juan Miguel Aponte MD [facility]
[2018-09-26 06:59] LABS: BASO# 0.01 X1000 (0.0-0.2); BASO% 0.1 % (0.0-0.8); EOS# 0.17 X1000 (0.0-0.7); EOS% 1.4 % (0.0-10.0); HEMATOCRIT 33.9 % (42.0-52.0); HEMOGLOBIN 11.4 g/dL (14.0-18.0); IMM GRAN% 0.8 % (0.0-0.5); LYMPH# 2.32 X1000 (1.2-3.4); LYMPH% 18.6 % (20.5-51.1); MCH 28.4 PG (27-31); MCHC 33.6 g/dL (33-37); MCV 84.5 FL (81-99); MONO# 0.87 X1000 (0.11-0.59); MPV 9.2 FL (7.4-10.4); NEUT# 8.98 X1000 (1.4-6.5); NEUT% 72.1 % (42.2-75.2); PLT 306 X1000 (130-400); RBC 4.01 XMIL (4.7-6.1); RDW 11.9 % (11.5-14.5); WBC 12.45 X1000 (4.8-10.8)
[2018-09-26] MEDS: HUMALOG SUBQ SCH ×4 (07:17→20:33)
[2018-09-26 07:19] LABS: AGAP 10; BUN 11 mg/dL (8-22); CALCIUM 7.8 mg/dL (8.8-10.2); CHLORIDE 99 mmol/L (98-107); COSMO 270; CREATININE 0.6 mg/dL (0.7-1.2); ESTIMATED GFR > 60; GLUCOSE 110 mg/dL (70-104); POTASSIUM 3.4 mmol/L (3.5-5.1); SODIUM 135 mmol/L (136-145); TCO2 26 mmol/L (25-35)
[2018-09-26] MEDS: POTASSIUM CHLORIDE 20 MEQ/SWI 20 MEQ/100 ML IVPB IV SCH ×2 (08:24→12:49)
[2018-09-26] MEDS: VANCOMYCIN 2,000 MG in NS 500 ML IV SCH ×3 (10:34→22:53)
[2018-09-26] MEDS: NS 1,000 ML IV SCH ×2 (12:21→20:32)
--- NOTE | 2018-09-26 19:23 | PROGRESS NOTE ---
DATE: 09/26/2018 INTERVAL HISTORY: The patient's pain is markedly improved. Still having significant purulent drainage from area of I D on his back. Previously noted dizziness, lightheadedness, has completely resolved. No further fevers. No acute events overnight. No new complaints. REVIEW OF SYSTEMS: A 12-point review of systems negative, except as per interval history. LABORATORY: WBC 12.4, hemoglobin 11.4, hematocrit 33.9, platelets 306,000. Sodium 135, potassium 3.4, BUN 11, creatinine 0.6, glucose 110. Initial blood cultures, gram-positive cocci in 2 of 2. Gram stain of wound with gram-positive cocci as well, although no growth. Repeat blood cultures today, no growth to date. OBJECTIVE: Vitals: Temperature max 99.1 degrees, pulse 83, respirations 20, blood pressure 103/47, O2 saturation 98% on room air. General: No acute distress. Obese. HEENT: Normocephalic, atraumatic. Moist mucous membranes. No cervical adenopathy. Cardiovascular: Regular rate and rhythm. No murmurs noted. Pulmonary: Clear to auscultation bilaterally. No wheezing, rales, or rhonchi noted. Abdomen: Obese, soft, nontender, nondistended. Bowel sounds positive. Extremities: Peripheral pulses decreased, but present. No clubbing, cyanosis. Neurologic: Cranial nerves grossly intact. Mild global weakness remains, although improved from admission. No focal deficits. Psychiatric: Normal mood and affect. Awake, alert, oriented x3. Skin: Area of previous I D in the mid back dressed. Minimal drainage on dressing, but when dressing taken down and areas pressed, there was copious [id number] drainage still coming out. Still some mild induration around the area. ASSESSMENT AND PLAN: 1. Syncope, likely multifactorial with dehydration and sepsis. Now, resolved with hydration and treatment of underlying infection. Cardiac workup unremarkable. 2. Large back abscess. On imaging, very large abscess noted. Surgery performed I D on admission. After surgical exploration, they felt that this did not extend to the bone. Still with ongoing, pretty significant drainage. Started initially on vancomycin, Zosyn, and clindamycin. Based on culture data growing gram-positive cocci, clindamycin and Zosyn were discontinued at the recommendation of Infectious Disease, who is following. 3. Gram-positive bacteremia. Initial blood cultures with gram-positive cocci. Still not finalized. Repeat blood cultures drawn today, nothing so far. Continue antibiotics above and monitor. 4. Hyponatremia. Significantly improved with IV fluids. Pretty minimal at this point. Monitor. 5. Diabetes, new diagnosis. A1c 9.1. Continues reasonable control so far. Continue current therapy, and will likely discharge on metformin and possibly a second oral agent. 6. Generalized weakness. Significantly improved with fluids and treatment of sepsis as above. Physical Therapy following. 7. Morbid obesity. Diet and exercise have been discussed. 8. Hypokalemia. Low again today. Will further replete and monitor.
[2018-09-26] MEDS: NORCO-7.5 PO PRN (20:33)
--- NOTE | 2018-09-26 20:44 | GENERAL SURGERY PROGRESS NOTE ---
DATE: 09/26/2018 SUBJECTIVE: Doing okay, still having drainage from his wound, but pain is much better. Dressing changes going well. No fevers. No tachycardia. OBJECTIVE: General: This gentleman is alert, sitting in a chair. Cardiovascular: Normal rate. Integument: Warm and dry. Musculoskeletal: Exam shows an upper back abscess with persistent purulent drainage but improving induration. No erythema. There is no necrosis. Blood culture is positive for gram-positive cocci. ASSESSMENT AND PLAN: A 53-year-old gentleman with back abscess, poorly-controlled diabetes. We will continue antibiotics, local wound care. Seems to be adequately draining at this point. We will continue to follow closely. cc: Isaac Bynum MD
[2018-09-27 06:41] LABS: BASO# 0.02 X1000 (0.0-0.2); BASO% 0.2 % (0.0-0.8); EOS% 2.1 % (0.0-10.0); HEMATOCRIT 36.1 % (42.0-52.0); IMM GRAN# 0.14 X1000 (0.0-0.04); IMM GRAN% 1.5 % (0.0-0.5); LYMPH# 2.42 X1000 (1.2-3.4); LYMPH% 25.9 % (20.5-51.1); MCH 28.4 PG (27-31); MCHC 33.2 g/dL (33-37); MCV 85.3 FL (81-99); MONO# 0.67 X1000 (0.11-0.59); MONO% 7.2 % (1.7-9.3); MPV 9.1 FL (7.4-10.4); NEUT% 63.1 % (42.2-75.2); PLT 357 X1000 (130-400); RBC 4.23 XMIL (4.7-6.1); RDW 12.1 % (11.5-14.5); WBC 9.35 X1000 (4.8-10.8)
[2018-09-27] MEDS: HUMALOG SUBQ SCH ×4 (06:44→20:55)
[2018-09-27 07:13] LABS: AGAP 11; BUN 9 mg/dL (8-22); CHLORIDE 103 mmol/L (98-107); COSMO 272; CREATININE 0.7 mg/dL (0.7-1.2); ESTIMATED GFR > 60; GLUCOSE 117 mg/dL (70-104); SODIUM 136 mmol/L (136-145); TCO2 22 mmol/L (25-35)
[2018-09-27] MEDS: NS 1,000 ML IV SCH ×3 (08:06→13:18)
[2018-09-27] MEDS: VANCOMYCIN 2,000 MG in NS 500 ML IV SCH (13:17)
--- NOTE | 2018-09-27 15:13 | PROGRESS NOTE ---
DATE: 09/27/2018 INTERVAL HISTORY: The patient's pain has nearly resolved. Ambulating better. Still having significant drainage from I and D site on his back, but it does appear to be slowing down somewhat. No acute events overnight. No new complaints. REVIEW OF SYSTEMS: Twelve point review of systems negative except as per interval history. LABS: WBC 9.35, hemoglobin 12.0, hematocrit 36.1, platelets 357,000. Sodium 136, potassium 4, BUN 9, creatinine 0.7 glucose 117. VITALS: T-max 98.7 degrees, pulse 85, respirations 20, blood pressure 125/56 ,O2 saturation 100% on room air. PHYSICAL EXAMINATION: General: No acute distress. Vitals: As above. Obese. HEENT: Normocephalic, atraumatic. Moist mucous membranes. No cervical adenopathy, adenopathy. Cardiovascular: Regular rate and rhythm. No murmurs noted. Pulmonary: Clear to auscultation bilaterally. No wheezing, rales, or rhonchi. Abdomen: Obese, soft, nontender, nondistended. Bowel sounds positive. Extremities: Peripheral pulses present. No clubbing or cyanosis. Neurologic: Cranial nerves grossly intact. No focal deficits. Psychiatric: Normal mood and affect. Awake, alert, oriented x3. Skin: I D site on mid back dressed. Still some sanguinous/purulent drainage, but does appear to be decreasing. Induration also somewhat improved. ASSESSMENT AND PLAN: 1. Syncope likely multifactorial with dehydration and sepsis. Now resolved with hydration and treatment of underlying infection. Cardiac workup was unremarkable. 2. Large back abscess. On imaging, very large mid back abscess noted, appeared to come close to the spine on imaging, but after on surgical exploration, they felt that it did not extend into the bone. Still some drainage from the site. Started initially on vancomycin and clindamycin but based on culture data clindamycin and Zosyn were discontinued as recommended by infectious disease. 3. Gram-positive bacteremia. Initial blood cultures with gram-positive cocci, which is likely the cause of his infection. Gram-positive cocci also seen on gram stain of wound culture. Initial blood culture still not finalized, but repeat blood cultures remain negative so far. Continue antibiotics and monitor. 4. Hyponatremia resolved with IV fluids. The patient with adequate p.o. intake at this point, so we will discontinue fluids and monitor. 5. Diabetes, new diagnosis, A1c 9.1. Reasonable control here on minimal sliding scale. We will likely discharge on metformin plus or minus a second oral agent. 6. Generalized weakness, acute improvement with fluids and treatment of sepsis as above. Physical therapy following. Initially thought the patient might need rehab, but if he continues improving as he is, he can likely be discharged home. 7. Morbid obesity. Diet and exercise has been discussed. 8. Hypokalemia improved with repletion. Continue to monitor.
--- NOTE | 2018-09-27 15:32 | GENERAL SURGERY PROGRESS NOTE ---
DATE: 09/27/2018 SUBJECTIVE: Feels okay. No fevers. No tachycardia. Dressing changes are going okay. He has continued to have quite amount of drainage. White count is now normal, hematocrit is 26. Glucoses are better, 1-teens. OBJECTIVE: General: He is alert. Back: His back shows no erythema. Dressing is in place with some purulent drainage noted on the wound. LABORATORY: Blood culture is positive for gram-positive cocci. Wound culture shows gram-positive cocci. ASSESSMENT AND PLAN: This is a diabetic gentleman with a large back abscess, bacteremia. Still having a significant amount of drainage, although I do think we have adequate source control. We will monitor this. Suspect as antibiotics improve this drainage will decrease. He may need more definitive drainage. Dr. Anderson will be back tomorrow. In the meantime, will continue local wound care. I have encouraged him to be out of bed, ambulating. cc: Isaac Bynum MD
[2018-09-28] MEDS: VANCOMYCIN 2,000 MG in NS 500 ML IV SCH ×2 (00:16→15:44)
[2018-09-28] MEDS: HUMALOG SUBQ SCH ×4 (06:30→21:16)
[2018-09-28 06:50] LABS: BASO# 0.02 X1000 (0.0-0.2); BASO% 0.3 % (0.0-0.8); EOS# 0.18 X1000 (0.0-0.7); EOS% 2.6 % (0.0-10.0); HEMATOCRIT 35.6 % (42.0-52.0); HEMOGLOBIN 11.7 g/dL (14.0-18.0); IMM GRAN% 1.5 % (0.0-0.5); LYMPH# 2.11 X1000 (1.2-3.4); LYMPH% 30.8 % (20.5-51.1); MCH 28.1 PG (27-31); MCHC 32.9 g/dL (33-37); MCV 85.6 FL (81-99); MONO# 0.65 X1000 (0.11-0.59); MONO% 9.5 % (1.7-9.3); MPV 8.8 FL (7.4-10.4); NEUT# 3.78 X1000 (1.4-6.5); NEUT% 55.3 % (42.2-75.2); PLT 359 X1000 (130-400); RBC 4.16 XMIL (4.7-6.1); RDW 12.1 % (11.5-14.5); WBC 6.84 X1000 (4.8-10.8)
[2018-09-28 07:02] LABS: AGAP 8; BUN 7 mg/dL (8-22); CALCIUM 7.5 mg/dL (8.8-10.2); CHLORIDE 103 mmol/L (98-107); COSMO 272; CREATININE 0.7 mg/dL (0.7-1.2); ESTIMATED GFR > 60; GLUCOSE 128 mg/dL (70-104); POTASSIUM 3.9 mmol/L (3.5-5.1); SODIUM 136 mmol/L (136-145); TCO2 25 mmol/L (25-35)
--- NOTE | 2018-09-28 07:22 | GENERAL SURGERY PROGRESS NOTE ---
DATE: 09/28/2018 SUBJECTIVE: The patient seems to be doing okay. He is still having some drainage from his back. OBJECTIVE: Vital Signs: The patient is currently afebrile. His vital signs are stable. General: No acute distress. HEENT: Normocephalic, atraumatic. Pupils equal, round, reactive to light. Mucous membranes moist. Oropharynx benign. Neck: Supple. Trachea midline. Cardiovascular: Regular rate and rhythm. Lungs: Grossly clear. Abdomen: Soft, nontender, nondistended. Extremities: Moves all extremities. Neurologic: Grossly intact. Skin: Wound on the back is still present, tracking towards the spine, but does not seem to involve the spine. Replaced the dressing and packed it with Vashe-soaked gauze. Extremities: Moves all extremities. Neurologic: Grossly intact. Vascular: All extremities perfused. MICROBIOLOGY: Blood shows gram-positive cocci. Wound shows gram-positive cocci, likely the same organism. ASSESSMENT AND PLAN: A 53-year-old gentleman with a large back abscess. Large back abscess. At this time, he does have bacteremia, likely from the same source. Will continue wound care. We did start packing it with Vashe-soaked gauze. That should help with some of the drainage coming out of the wound. Will continue local wound care. Hopefully, we can avoid doing further drainage, but he may need that in the near future, but otherwise continue current treatment. cc: Santos Anderson MD [facility]
--- NOTE | 2018-09-28 14:45 | PROGRESS NOTE ---
DATE: 09/28/2018 INTERVAL HISTORY: The patient continues to well, slowly increasing ambulation. Pain well controlled. However, still having pretty significant amounts of purulent drainage from the abscess of his back. This has been repacked by surgery. Remains afebrile. No new complaints. REVIEW OF SYSTEMS: Twelve point review of systems negative except as per interval history. LABS: WBCs 6.8, hemoglobin 11.7, hematocrit 35.6, platelets 359,000. Basic metabolic panel unremarkable aside from glucose 128-160. VITALS: T-max 98.9 degrees, pulse 86, respirations 20, blood pressure 125/69, O2 saturation 98% on room air. PHYSICAL EXAMINATION: General: No acute distress. Vitals: As above. HEENT: Normocephalic, atraumatic. Moist mucous membranes. No cervical adenopathy. Cardiovascular: Regular rate and rhythm. No murmurs noted. Pulmonary: Clear to auscultation bilaterally. No wheezing, rales, or rhonchi. Abdomen: Obese, soft, nontender, nondistended. Bowel sounds positive. Extremities: Peripheral pulses intact. No clubbing or cyanosis. Neurologic: Cranial nerves grossly intact. No focal deficits. Psychiatric: Normal mood and affect. Awake, alert, oriented x3. Skin: I and D site on the mid back remains dressed but still with significant sanguinous/purulent drainage. Induration improving slowly. ASSESSMENT AND PLAN: 1. Syncope, likely multifactorial with dehydration and sepsis. Symptoms now resolved with hydration and treatment of underlying infection. Cardiac workup unremarkable. 2. Large back abscess. On initial CT, the patient had a very large mid back abscess. On surgical explanation, they felt it did not extend to the bone. Still significant ongoing drainage from the site, although patient is symptomatically greatly improved. He was started initially on vancomycin and clindamycin based on the culture data. He has been continued on vancomycin alone. Surgery recommended continued observation. If the drainage continues, he may need for further surgical exploration. discussed case with ID and if no further surgery is needed then they are ok with him going home with a PICC line to complete 2 weeks of vancomycin. although patient's self- pay status may make arranging this difficult. will ask social work to see what options may be. 3. Gram-positive bacteremia. Initial blood culture was positive for Staphylococcus hominis, resistant only to penicillin and oxacillin. Repeat blood cultures are no growth. We will continue vancomycin for now, pending further infectious disease recommendations. 4. Hyponatremia, resolved with intravenous fluids after admission and remains stable off of fluids now. 5. Diabetes, new diagnosis. A1c of 9.1. Good control here with minimal sliding scale. Likely discharge on metformin plus or minus a second oral agent. 6. Generalized weakness, significantly improved with fluids and treatment of sepsis as above. Physical therapy following. 7. Morbid obesity. Diet and exercise has been discussed. 8. Hypokalemia, improved status post repletion. Monitor. [facility]
--- NOTE | 2018-09-28 19:25 | INFECTIOUS DISEASE PROGRESS NO ---
DATE: 09/28/2018 PRESENT ILLNESS: The patient has a very large back abscess which has been drained. Culture from the abscess is growing strep viridans. The patient also has 2 blood cultures positive for Staph hominis. Even though the Staph hominis was not cultured from the back I think it arose from the back. MEDICATIONS: The patient is on vancomycin 2 g IV every 12 hours. PHYSICAL EXAM: Vital Signs: Temperature is 98.5 degrees, pulse 86, respirations 20, blood pressure 125/69. General: This is an obese, middle-aged male. He is in no acute distress. Head/eyes/ears/nose/throat: He can hear my spoken words and see near objects. He does not have any white patches on his tongue. Neck: He does not seem to have any pain in his neck when he moves his neck or head. Back: The patient has a large wound where the patient's back abscess was drained. The size is much less than it was and there is not any surrounding erythema but when you push on the back, purulent drainage does come out. Lungs: Clear to auscultation. Cardiovascular: Heart rate is regular. Abdomen: Soft and nontender. Neurologic: The patient is alert. He can move his extremities. There is no tremor. His hearing is normal as is his vision. LAB AND X-RAY: The repeat blood cultures that originally grew Staph hominis are now negative. Culture from the patient's back grew viridans strep. CBC shows a white blood cell count of 6840, hemoglobin 11.7, and platelet count 359,000. Creatinine is 0.7. GFR is greater than 60. ASSESSMENT AND PLAN: The patient has a Staph bacteremia which I think originated from the patient's back abscess, even though only a viridans strep was isolated from the abscess. My plan is to treat the patient with 2 weeks of IV vancomycin and if there is still significant enough drainage, I may put the patient on an oral medication such as tetracycline or Septra or possibly Levaquin. COMORBIDITIES: He is morbidly obese, he has diabetes mellitus. cc: Juan Miguel Aponte MD
[2018-09-28] MEDS: NORCO-7.5 PO PRN (21:16)
[2018-09-29] MEDS: VANCOMYCIN 2,000 MG in NS 500 ML IV SCH ×2 (00:16→13:55)
[2018-09-29] MEDS: HUMALOG SUBQ SCH ×2 (07:01→11:30)
[2018-09-29 07:23] LABS: INR 0.89; PROTIME 12.7 Seconds (11.0-16.0)
[2018-09-29] MEDS ORDERED: NS 250 ML ONE (08:14)
--- NOTE | 2018-09-29 12:48 | GENERAL SURGERY PROGRESS NOTE ---
DATE: 09/29/2018 SUBJECTIVE: Patient seems to be doing well. Discussed the case with Dr. Juan Miguel Aponte yesterday. They are making arrangements for possible discharge today. OBJECTIVE: Vital Signs: Patient is currently afebrile. His vital signs stable. General: No acute distress. HEENT: Normocephalic, atraumatic. Pupils equal, round, reactive to light. Mucous membranes moist. Oropharynx benign. Neck: Supple. Trachea midline. Cardiovascular: Regular rate and rhythm. Lungs: Grossly clear. Abdomen: Soft, nontender, nondistended. Extremities: Moves all extremities. Neurologic: Grossly intact. Skin: No signs of jaundice but wound as previously described. Overall appears stable. Vascular: All extremities perfused. LABORATORY: Reviewed from yesterday, white blood cell count 6. Electrolytes have improved. ASSESSMENT AND PLAN: A 53-year-old with large back abscess. Large back abscess. At this time, the patient is clinically doing okay from a surgical point of view as long as we get everything arranged with home health for wound care. He can go home from my point of view. We will defer to the hospitalist, Infectious Disease. cc: Santos Anderson MD
[2018-09-29 15:52] VITALS: BP 134/77
--- NOTE | 2018-09-29 18:20 | INFECTIOUS DISEASE PROGRESS NO ---
DATE: 09/29/2018 PRESENT ILLNESS: The patient is status post incision and drainage of a large back abscess. The surgery was performed by Dr. Anderson. The patient has a staphylococcal bacteremia. MEDICATIONS: Currently, the patient is receiving vancomycin. PHYSICAL EXAMINATION: Vital Signs: Temperature is 97.8 degrees, pulse 79, respirations 18, blood pressure 131/80. Patient weighs 293 pounds. General: This is an obese, middle-aged male. He is in no acute distress. Head/eyes/ears/nose/throat: He can hear my spoken words and see near objects. There is no white coating on his tongue. Neck: No stiffness. Lungs: Clear to auscultation. Cardiovascular: Regular heart rate. Back: The patient's wound has a dressing on it. The dressing is intact. Neurologic: The patient is alert. He can move his extremities. There is no tremor. LAB AND X-RAY: There is no new lab or x-ray for today. ASSESSMENT AND PLAN: The patient has a Staph bacteremia and a large back abscess which has been incised and drained. The patient will be going home today on 9 more days of daptomycin. The side effect of daptomycin, namely muscle toxicity, has been explained to the patient who agrees with treatment. The patient will be coming to the outpatient treatment for his injections of daptomycin. The dose of daptomycin is 800 mg IV daily. I have requested that the patient have a CBC with differential, creatinine, and a CK drawn every Friday while the patient is on daptomycin. The patient will be getting daptomycin 800 mg IV daily for 9 more days. I have also put an order besides the antibiotic that the patient every Friday should have a CBC with differential, a creatinine and a CK to be drawn every Friday for a 2 week period. I am requesting to have the patient come to my office in 9 days and the patient will be seeing Dr. Anderson in his office in 1 week. If the patient needs further antibiotic treatment then he will be put on Levaquin 500 mg p.o. daily for another 1 to 2 weeks after the patient is finished with the IV daptomycin which the patient will be receiving daily for 9 days. COMORBIDITIES: He is morbidly obese. He also has diabetes mellitus. cc: Juan Miguel Aponte MD
--- NOTE | 2018-09-30 08:10 | DISCHARGE SUMMARY ---
ADMISSION DATE: 09/24/2018 DISCHARGE DATE: 09/29/2018 DISCHARGE DISPOSITION: Home on IV antibiotics through PICC line for 9 days. DISCHARGE DIAGNOSES: 1. Sepsis from back abscess from Staphylococcus hominis. 2. Syncope due to sepsis as well as heat exhaustion. 3. Hyponatremia due to volume depletion and sepsis. 4. New onset diabetes. 5. Morbid obesity. 6. Hypokalemia. OTHER DIAGNOSIS: History of morbid obesity. DISCHARGE MEDICATIONS: 1. Metformin 500 mg b.i.d. 2. Acetaminophen 650 mg q.6 hours as needed for pain. 3. Intravenous daptomycin as per Infectious Disease for 9 days. CONSULTATIONS DURING HOSPITALIZATION: General Surgery Dr. Anderson. Infectious Disease Dr. Aponte. VITALS: At the time of discharge, temperature 97.8 degrees, pulse 79, respiratory rate 18, blood pressure 130/80 and saturating 100% room air. PHYSICAL EXAMINATION: Morbidly obese not in acute distress. Oral cavity is moist. He has a right-sided arm PICC line. Air entry bilaterally equal. No wheeze, rhonchi, or crackles. S1 and S2 normal. No murmur or gallop. Abdomen soft and nontender. No lower extremity edema. On back examination, he had about 2 x 2 cm wound which is appearing clean and not draining any pus. SIGNIFICANT LABORATORY DATA: At the time of discharge, WBC 6000 which improved from 18,000 on presentation. Hemoglobin 11.7, platelet of 359,000. BUN of 7, creatinine of 0.7. Blood sugar of 165. Significant micro during hospital admission, blood culture on 09/24 has Staphylococcus hominis, which was methicillin-resistant. Blood culture on 09/26 did not have any growth. SIGNIFICANT IMAGING DURING HOSPITAL ADMISSION.: Head CT for syncope did not have any evidence of acute intracranial process. Thoracic spine x-ray had posterior soft tissue gas collection and degenerative disk disease without any acute bony abnormalities. Chest, abdomen and pelvis CT had abscess in the posterior subcutaneous tissue of about 11 x 6 cm, which was expanding approximately from T6-T10 level without evidence of other acute thoracic disease. There was nonspecific retroperitoneal lymphadenopathy. SIGNIFICANT PROCEDURES DURING HOSPITAL ADMISSION: On 09/24, the patient underwent incision and drainage of intramuscular back abscess which was about 11 cm. HOSPITAL COURSE SUMMARY: Mr. 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 Apparently, he had been feeling weak since 48 hours prior to syncope episode. Considering he was working in the heat, he thought he might have had heat exhaustion. He came to the emergency room where he was found to have sepsis and a large back abscess. The patient was unsure how he had developed that back abscess, but he thought he may have had an insect bite or he may have scratched it, which eventually led to back abscess and it was hurtful. He was found to have a temperature of 100.4 degrees and pulse of 107 on admission with leukocytosis of 18,000. He was started on intravenous fluids, intravenous antibiotics, and Surgery was consulted. He eventually underwent incision and drainage. At the time of discharge, he is hemodynamically stable. Alert and oriented, able to walk in the hallway without any trouble. Infectious Disease has got an PICC line and the patient will be discharged on intravenous daptomycin to complete 9 days of antibiotics. The patient has also been provided metformin prescription. Plan of care discussed with the patient. TIME SPENT: More than 30 minutes were spent in discharging this patient. cc: Sb Hernández MD
== END 2018-09-29 16:19 | disposition home or self-care (01) | DRG 854 ==
LOC: ED 14:37 → 4N 20:06 → SUATTDRO 20:06
PROVIDERS: ATTEND Internal Medicine
CPT/HCPCS: 36569; 70450; 71010; 71045; 71260; 72072; 74177; 80048; 80053; 80202; 81001; 82550; 82553; 82948; 83036; 83605; 84484; 85025; 85610; 87040; 87070; 87077; 87186; 93005; 93306; 97162; 97530; A9270; C8929; J1815; J2543; J3370; J3480; J7030; J7040; J7050; Q9957; Q9967; XXXXX

== ENCOUNTER 2019-03-11 06:31 | Inpatient (IN) ==
[2019-03-11] MEDS ORDERED: ASPIRIN PO ONE (06:51)
--- NOTE | 2019-03-11 06:59 | EKG Report ---
Test Performed on : 03/11/2019 06:38:24 AM Test Reason : CP Blood Pressure : / mmHG Vent. Rate : 101 BPM Atrial Rate : 101 BPM P-R Int : 142 ms QRS Dur : 096 ms QT Int : 344 ms P-R-T Axes : 053 -08 075 degrees QTc Int : 446 ms Sinus tachycardia. Otherwise normal ECG When compared with ECG of 24-SEP-2018 15:07, Nonspecific T wave abnormality no longer evident in Inferior leads Unconfirmed Result
[2019-03-11 07:18] LABS: BASO# 0.01 X1000 (0.0-0.2); BASO% 0.1 % (0.0-0.8); EOS# 0.07 X1000 (0.0-0.7); EOS% 0.7 % (0.0-10.0); HEMATOCRIT 46.1 % (42.0-52.0); HEMOGLOBIN 15.6 g/dL (14.0-18.0); IMM GRAN# 0.04 X1000 (0.0-0.04); IMM GRAN% 0.4 % (0.0-0.5); LYMPH# 3.11 X1000 (1.2-3.4); LYMPH% 32.5 % (20.5-51.1); MCH 29.5 PG (27-31); MCHC 33.8 g/dL (33-37); MCV 87.1 FL (81-99); MONO# 0.75 X1000 (0.11-0.59); MONO% 7.8 % (1.7-9.3); MPV 9.4 FL (7.4-10.4); NEUT% 58.5 % (42.2-75.2); PLT 179 X1000 (130-400); RBC 5.29 XMIL (4.7-6.1); RDW 12.3 % (11.5-14.5); WBC 9.58 X1000 (4.8-10.8)
[2019-03-11] MEDS ORDERED: NITROGLYCERIN TOP ONE ×2 (07:18→16:34)
--- NOTE | 2019-03-11 07:23 | Diag Imaging Result Doc PS360 ---
EXAM: CHEST-2 VIEWS HISTORY: cp TECHNIQUE: Two views COMPARISON: 09/24/2018 FINDINGS: The lungs are well expanded. The heart is not enlarged. The vessels are not distended. There are no infiltrates. No pleural effusions. IMPRESSION: No acute abnormality. Electronically signed by Manfred Vasquez 03/11/2019 7:21 AM
--- NOTE | 2019-03-11 07:37 | PROVIDER DOCUMENTATION ---
HPI-Chest Pain - General Chief Complaint: Chest Pain Stated Complaint: sob,left arm numbness Time Seen by Provider: 03/11/19 06:44 Source: patient Allergies/Adverse Reactions: Patient Allergies Allergy/AdvReac Type Severity Reaction Status Date / Time No Known Allergies Allergy Verified 03/11/19 06:51 Home Medications: Home Medication List Medication Instructions Recorded Confirmed Last Taken Type NK [No Home Medications] 03/11/19 03/11/19 Unknown History - History of Present Illness-CP Nature of Presenting Problem: 54 yo wm with no prior cardiac history notes 2 week of intermittent left arm "cramping," initially just in bicep, now radiating to throat and left forearm. It is also associated with slight nausea, SOB and diaphoresis for the last 2 days. When pain hits, it usually lasts up to 5 minutes and goes away. Nothing seems to bring it on, and nothing in particular seems to relieve it. Just st arted a new job, and thought initially it may be due to using muscles he hadn't used before, but now he is worried he may be having a heart attack. Location: reports: other (left bicep) Chest Pain Radiation: reports: arms, neck Quality of Pain: reports: aching, cramping Severity in ED: moderate Onset/Duration: other Timing: gone now, intermittent, changing over time, getting worse Context/Activities at Onset: reports: light activity Modifying Factors: improves with: nothing Associated Symptoms: reports: diaphoresis (x 2 days with pain), nausea (x 2 days with pain), shortness of breath (mild x 2 days with pain) Nitro Today/Relief: no nitro taken today Aspirin Treatment Today: no aspirin today Prior Chest Pain/Cardiac Workup: reports: no prior chest pain Similar Symptoms Previously?: No Recently Seen Here or By Another Healthcare Provider: No Review of Systems - Adult - REVIEW OF SYSTEMS - ADULT Constitutional: reports: no symptoms reported Eyes: reports: no symptoms reported Ears, Nose, Mouth & Throat: reports: no symptoms reported Cardiovascular: reports: see HPI, chest pain. denies: edema, heart murmur, irregular heart rate, orthopnea, palpitations, poor circulation, PND, syncope Respiratory: reports: no symptoms reported Gastrointestinal: reports: no symptoms reported Genitourinary: reports: no symptoms reported Musculoskeletal: reports: no symptoms reported Integumentary: reports: no symptoms reported Neurological: reports: no symptoms reported Psychiatric: reports: no symptoms reported Endocrine: reports: no symptoms reported Hematologic/Lymphatic: reports: no symptoms reported Allergic/Immunologic: reports: no symptoms reported All Other Systems: Reviewed and Negative Past History - Adult - PAST MEDICAL HISTORY-ADULT Review of Records: reports: Old Records Reviewed (Hospitalized for several days earlier this year for sepsis d/t back abscess, no cardiac work=up except ECHO 10/02: ORDER DATE: 09/24/2018 INTERPRETING PHYSICIAN: Tab Lancaster MD. REQUESTING PHYSICIAN: Cheo Munoz MD. INDICATIONS: Syncope, abscess, sepsis, morbid obesity. M-MODE MEASUREMENTS: Left ventricle end diastole: 5.6 cm. Left ventricle end systole: 3.9 cm. Posterior wall: 1.1 cm. Interventricular septum: 1.1 cm. Left atrium: 3.8 cm. Aortic root diameter: 3.2 cm. The study was difficult. Optison was utilized to maximize visualization of the endocardium. SUMMARY OF 2-DIMENSIONAL IMAGIN. The left ventricular chamber appears to be mildly enlarged. Left ventricular systolic function appears to be at the lower limits of normal and perhaps mildly decreased in the range of 50-55%. 2. The atria appear to be normal. Aortic valve was normal. Color flow mapping unremarkable. 3. The tricuspid valve looks normal. Color flow mapping unremarkable. 4. Pulmonary pressure is normal. 5. Mitral valve is normal. Color flow mapping unremarkable. 4. The pulse wave Doppler of mitral inflow is normal. 5. The tissue Doppler of septal and lateral mitral annulus is also normal. 6. There is no diastolic dysfunction. 7. The pulmonary valve is unremarkable. 8. There is no pericardial effusion, mass or thrombus. Clinical correlation is recommended.), Nursing Assessment Review, Medications Reviewed, Social history reviewed & non-contributory. Major Childhood Illnesses: reports: denies history Cardiovascular: reports: denies history Respiratory: reports: denies history Gastrointestinal: reports: denies history Obstetrical/Gynecological: reports: denies history Genitourinary: reports: denies history Musculoskeletal: reports: denies history Neurological: reports: denies history Endocrine/Immune: reports: denies history Other Conditions: reports: denies history - PRIOR SURGERIES/PROCEDURES Surgical/Procedure History: reports: reviewed, not pertinent - IMMUNIZATION STATUS Childhood Immunizations: UTD Flu Vaccine: NUTD - FAMILY HISTORY Family History: CAD over 55 yo - SOCIAL HISTORY Smoking: cigarettes, greater than 1 pack/day Provider spent 3-5 mins advising pt. on dangers of tobacco.: Discussed manners to quit use, and f/u contacts for add'l counseling. Substance Use: none/never Alcohol Use Frequency: rarely Living Situation: alone Physical Exam-General - PHYSICAL EXAM-ADULT Initial Vital Signs Reviewed: Yes (Sl tachycardic, o/w normal) - CONSTITUTIONAL General Appearance: appears well, alert, no apparent distress - EYES Eyes: PERRL/EOMI, pink conjunctivae - HEAD, EARS, NOSE, MOUTH & THROAT HENMT: normocephalic/atraumatic, normal ENT inspection. negative: moist mucous membranes (dry) - NECK Neck: non-tender, full range of motion, supple, normal inspection - RESPIRATORY Respiratory: chest non-tender, lungs clear, normal breath sounds, no pleuratic chest pain, no respiratory distress, no accessory muscle use - CARDIOVASCULAR Cardiovascular: normal peripheral pulses, regular rate, rhythm, no edema, no gallop, no JVD, no murmur, tachycardia - GASTROINTESTINAL (ABDOMEN) Abdominal Exam: normal bowel sounds, non tender, soft, no organomegaly, no pulsatile mass - LYMPHATIC Lymphatic: no adenopathy - MUSCULOSKELETAL Back Exam: normal inspection, no CVA tenderness, no vertebral tenderness Extremity: normal range of motion, non-tender, normal gait, normal inspection, no pedal edema, no calf tenderness Peripheral Pulses: radial (R): 2+, radial (L): 2+, dorsalis-pedis (R): 2+, dorsalis-pedis (L): 2+ - SKIN Integumentary: normal color, normal turgor, warm/dry - 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, grossly normal, no motor/sensory deficits - PSYCHIATRIC Psych/Mental Status: normal mood/affect, normal thought content, normal thought process, oriented x 3 - HEART Score HEART Score: History: Highly Suspicious HEART Score: ECG: Non-Specific Repolarization Disturbance/LBBB/PM HEART Score: Age: 45-65 Years HEART Score: Risk Factors for Atherosclerotic Disease: > or = 3 Risk Factors or History of Atherosclerotic Disease HEART Score: Troponin: < or = Normal Limit Total HEART Score:: 6 Progress - PLAN OF CARE/RESULTS Progress/Plan/Lab Results: Vital Signs - 8 hr 03/11/19 06:42 03/11/19 07:29 Temperature 98 F Pulse Rate 103 H 95 H Respiratory Rate 16 17 Blood Pressure 153/86 144/84 O2 Sat by Pulse Oximetry 94 L 95 Laboratory Results - last 24 hr 03/11/19 03/11/19 03/11/19 06:54 06:54 06:54 WBC 9.58 RBC 5.29 Hgb 15.6 Hct 46.1 MCV 87.1 MCH 29.5 MCHC 33.8 RDW Std Deviation 12.3 Plt Count 179 MPV 9.4 Immature Gran % (Auto) 0.4 Neut % (Auto) 58.5 Lymph % (Auto) 32.5 [place] % (Auto) 7.8 Eos % (Auto) 0.7 Baso % (Auto) 0.1 Immature Gran # (Auto) 0.04 Neut # (Auto) 5.60 Lymph # (Auto) 3.11 [place] # (Auto) 0.75 H Eos # (Auto) 0.07 Baso # (Auto) 0.01 Sodium 137 Potassium 3.9 Chloride 98 Carbon Dioxide 24 L Anion Gap 15 BUN 7 L Creatinine 0.9 Estimated GFR/1.73 m2 > 60 BUN/Creatinine Ratio 8 Glucose 319 H Calculated Osmolality 284 Calcium 9.4 Total Bilirubin 0.34 AST 14 ALT 14 Alkaline Phosphatase 110 Creatine Kinase 102 Troponin T 0.042 Total Protein 6.3 Albumin 4.0 Globulin 2.3 Albumin/Globulin Ratio 1.7 Orders Category Date Time Status Cardiac Monitoring DIRECTED Care 03/11/19 06:51 Active Oxygen Therapy- ED Nursing DIRECTED Care 03/11/19 06:51 Active Saline Loc NOW Care 03/11/19 06:51 Active CHEST-2 VIEWS [RAD] Stat Exams 03/11/19 06:51 Completed CBC WITH ELECTRONIC DIFF [HEME] Stat Lab 03/11/19 06:54 Completed CK PROFILE [SP CHEM] Stat Lab 03/11/19 06:54 Completed COMPREHENSIVE METABOLIC PANEL [CHEM] Stat Lab 03/11/19 06:54 Completed D-DIMER [COAG] Stat Lab 03/11/19 06:54 Received PRO B-NATRIURETIC PEPTIDE Stat Lab 03/11/19 06:54 Received PROTIME WITH INR [COAG] Stat Lab 03/11/19 06:54 Received PTT [COAG] Stat Lab 03/11/19 06:54 Received TROPONIN T Stat Lab 03/11/19 06:54 Completed Aspirin Med 03/11/19 06:51 Discontinued 325 mg PO NOW ONE Enoxaparin 1 mg/kg [Lovenox 1 mg/kg] Med 03/11/19 08:14 Once 1 each SUBQ NOW ONE Nitroglycerin Med 03/11/19 07:18 Discontinued 0.5 inch TOP NOW ONE CP/SOB/Palp >45 yrs of Age Stat Oth 03/11/19 06:51 Ordered EKG [EKG] Stat Ther 03/11/19 06:51 Draft Result Diagrams: 03/11/19 06:54 03/11/19 06:54 - REASSESSMENT Reassessment #1 Time Reassessed: 07:47 Status: unchanged (remains pain free, received ASA and NTP) Reassessment #2 Time Reassessed: 08:15 Status: unchanged (still CP free, admits to being told once he was a diabetic, doesn't take any meds.) - EKG 1 Time of EKG reading by physician:: 07:00 (initially read by Dr. Perry at 0640) EKG Read and Signed by:: Wayne Patel EKG Interpretation (*Must complete 3 of following elements*): Abnormal Rate: 101 Rhythm: NSR [place]: normal QRS: poor R wave progression AL Interval: normal ST Wave: non-specific ST changes Prior EKG Comparison: unchanged from prior (minimally changed from 09/25/18) - XRAY 1 XRAY Study: Chest Impression: Normal, See EMR Report ( EXAM: CHEST-2 VIEWS HISTORY: cp TECHNIQUE: Two views COMPARISON: 09/24/2018 FINDINGS: The lungs are well expanded. The heart is not enlarged. The vessels are not distended. There are no infiltrates. No pleural effusions. IMPRESSION: No acute abnormality. Electronically signed by Manfred Vasquez 03/11/2019 7:21 AM 03/11/19720 Interpreting Physician: Manfred Vasquez MD Dictated Date/Time: 03/11/19719 cc: Wayne Patel MD; None,PCP) - CONSULTS/PCP/HOSPITALIST Notification #1 *Consult/PCP/Hospitalist*: Nahomi Bailey Time Discussed: 08:15 Consult Disposition: Will see in ED, Admit Departure - Departure Date of Disposition Decision: 03/11/19 Time of Disposition Decision: 08:15 DIAGNOSIS: Unstable angina pectoris, Type 2 diabetes mellitus with hyperglycemia, without long-term current use of insulin, Tobacco use disorder Disposition: ADMITTED INPATIENT 09 Certified Medical Emergency: Emergent Condition: Stable Referrals and Follow-Ups: None,PCP [Primary Care Provider] - - Critical Care Note This patient required my direct & personal management of CC.: No Attestation - Physician/ AGUSTIN Attestation Patient care was provided by Advanced Practice Provider:: No The physician spent face to face time with patient:: Yes Advanced Practice Provider documentation review:: Supervising physician onsite and consulted in the evaluation and care of this patient. The physician did have a face to face encounter with the patient.
[2019-03-11 07:49] LABS: AGAP 15; ALB/GLOB RATIO 1.7; ALKALINE PHOSPHATASE 110 U/L (32-122); BUN 7 mg/dL (8-22); CALCIUM 9.4 mg/dL (8.8-10.2); CHLORIDE 98 mmol/L (98-107); CK PROFILE 102 U/L (24-204); COSMO 284; CREATININE 0.9 mg/dL (0.7-1.2); ESTIMATED GFR > 60; GLUCOSE 319 mg/dL (70-104); GOT 14 U/L (10-34); GPT 14 U/L (10-44); POTASSIUM 3.9 mmol/L (3.5-5.1); SODIUM 137 mmol/L (136-145); TCO2 24 mmol/L (25-35); TOTAL BILIRUBIN 0.34 mg/dL (0.20-1.00); TOTAL PROTEIN 6.3 g/dL (6.3-8.3)
[2019-03-11] MEDS ORDERED: LOVENOX 1 MG/KG SUBQ ONE (08:14)
[2019-03-11 08:16] LABS: INR 0.96; PROTIME 12.8 Seconds (11.0-16.0)
[2019-03-11 08:17] LABS: PTT 28.2 Seconds (22.3-41.8)
[2019-03-11] MEDS ORDERED: LOVENOX SUBQ ONE ×2 (08:30→20:00)
[2019-03-11] MEDS ORDERED: TYLENOL PO PRN (09:03)
[2019-03-11] MEDS ORDERED: NICODERM PATCH TD SCH (09:15)
[2019-03-11 09:16] LABS: HEMOGLOBIN A1C 10.2 % (4.8-6.0)
--- NOTE | 2019-03-11 09:25 | EKG Report ---
Test Performed on : 03/11/2019 09:24:33 AM Test Reason : CP< left arm pain Blood Pressure : / mmHG Vent. Rate : 081 BPM Atrial Rate : 081 BPM P-R Int : 140 ms QRS Dur : 106 ms QT Int : 372 ms P-R-T Axes : 044 -23 128 degrees QTc Int : 432 ms Normal sinus rhythm. Incomplete right bundle branch block ST & T wave abnormality, consider lateral ischemia Abnormal ECG When compared with ECG of 11-MAR-2019 06:38, (Unconfirmed) T wave inversion now evident in Lateral leads Unconfirmed Result
[2019-03-11] MEDS ORDERED: LOPRESSOR PO SCH (11:10)
[2019-03-11] MEDS ORDERED: COZAAR PO SCH (11:15)
[2019-03-11] MEDS: HUMALOG SUBQ SCH ×3 (12:19→16:52)
--- NOTE | 2019-03-11 12:40 | CARDIOLOGY CONSULTATION ---
DATE: 03/11/2019 CHIEF COMPLAINT ON PRESENTATION: Left arm pain. HISTORY OF PRESENT ILLNESS: Mr. Haines is a 54-year-old gentleman with a history of diabetes, tobacco abuse, who presented with a 2-day history of left arm pain. The initial episode occurred yesterday while he was carrying 5-gallon buckets. It felt like a dull pain in the left upper arm as well as the left wrist area. It lasted for around 5 to 10 minutes, resolved with rest. He had another episode occurring this morning with essentially no activity at the time. This lasted for several minutes as well. He ultimately presented for further evaluation. He has had no cardiac evaluation before. He does smoke. PAST MEDICAL HISTORY: Significant for: 1. Diabetes. 2. Possible hyperlipidemia and hypertension, although he has not been taking any medications recently due to not having insurance. 3. Morbid obesity. SOCIAL HISTORY: He does smoke. Currently employed at some sort of chemical factory. FAMILY HISTORY: Significant for hypertension. He had a father who around 82 years of age. Mother has dementia and is currently alive, living in a correction. REVIEW OF SYSTEMS: A 10-system review of systems is negative, except for those things mentioned in the HPI. PHYSICAL EXAMINATION: Vital Signs: The patient is afebrile, his heart rate is 87, blood pressure 125/76. General: He is in no acute distress. HEENT: Oropharynx is moist. Poor dentition. Eye examination shows pink conjunctiva, white sclerae. Neck: No obvious thyromegaly or thyroid tenderness. Cardiovascular: He sounds to be in a regular rate and rhythm. I do not hear any obvious murmurs. He has no S3. He has no lower extremity edema. Chest: Clear to auscultation bilaterally. He has no increased work of breathing. Abdomen: Soft, nontender. Skin: Warm and dry throughout. He does have a small, approximately 2 to 3 mm puncture in his mid central back. There is really no surrounding erythema. There is some mild amount of draining pus. Neurological: He is moving all extremities well. He has no lateralizing deficits. Psychiatric: He is alert, oriented. Normal mood and affect. PERTINENT DATA: His EKGs show what appears to be sinus rhythm. He has no obvious ischemic changes. He has no sign of previous infarct. His chest x-ray shows no acute abnormalities. His lab data shows a white count of 9.6, his hematocrit is 46, his platelet count is 179,000. His D- dimer is normal. His INR is 0.96. His sodium is 137, potassium 3.9, his BUN is 7, creatinine 0.9. His initial troponin was 0.042, subsequent 0.176. His proBNP is 26. ASSESSMENT: Mr. Haines is a 54-year-old gentleman who suffered a non ST-elevation myocardial infarction. PLAN: The patient already ate this morning. Will plan on pursuing cardiac catheterization in the morning. Will give him a dose of Lovenox, continue aspirin, place him on high-intensity statin therapy. He has been initiated on metoprolol and losartan. He is on oral antibiotics for a localized skin infection in his mid back area. Risks, benefits, and alternatives to cardiac catheterization have been explained to the patient, and he agrees to proceed. cc: Harry Nguyen MD
[2019-03-11 12:42] VITALS: BP 147/78
--- NOTE | 2019-03-11 12:50 | HISTORY AND PHYSICAL ---
I agree with most components of history, physical, assessment, and plan dictated in Nurse Practitioner's note. BRIEF SUMMARY: In brief, Mr. Haines is a 54-year-old man with past medical history of morbid obesity, tobacco abuse, ziy-mzdlfjo-wailqjiwf diabetes mellitus, who came in with chief complaints of intermittent left shoulder discomfort also affecting the left wrist. Apparently, patient had such an episode when he was lifting heavy objects at work about 2 weeks ago. The entire episode was described as left shoulder pain or discomfort radiating towards the left wrist and he thought that it was related to physical exertion as he was starting to work after several months. He had to sit down and after 10 minutes the episode had resolved. Since then, he has had 2 such episodes. Today, morning, when he woke up and was taking a shower he experienced a similar episode. Associated with that, he also had shortness of breath, diaphoresis, so he decided to come to the emergency room. In the emergency room, he was hemodynamically stable though the 1st troponin was 0.08. The 2nd troponin increased to 0.1 so the hospitalist team was consulted for further management. SUBJECTIVE: At the time of my evaluation he is denying any such feelings at the moment. He denies any shortness of breath or palpitation. He was never diagnosed with coronary artery disease, though his father had history of stroke. He states he would quit smoking when I counseled him about quitting it. VITAL SIGNS: Temperature 98.1 degrees, pulse 90, respiratory rate 20, blood pressure 140/70, saturating 96 on 2 L nasal cannula. PHYSICAL EXAMINATION: GENERAL: He is not in acute distress. Obese. Oral cavity is moist. LUNGS: Air entry bilaterally equal. No wheeze, rhonchi, crackles. CARDIOVASCULAR: S1, S2 normal. No murmur or gallop. ABDOMEN: Obese, soft, nontender. Negative hepatojugular reflex. His jugular venous pressure is less than 6 cm of water. EXTREMITIES: He has bilateral lower extremity edema. SKIN: On the back, he has a small opening of previous back abscess which is still draining pus- like material. LABORATORY DATA: Essentially unremarkable except increasing troponins which increased from 0.04 to 0.17. Microbiology: No data. IMAGING: Chest x-ray on admission did not have any acute pathology. ASSESSMENT AND PLAN: 1. Chest pain. This is likely non-ST elevation myocardial infarction. I will trend troponins. The patient was given 325 mg of aspirin and 140 mg of subcu enoxaparin. I will keep him on 1 mg/kg enoxaparin. The nighttime dose has already been ordered by cardiology team. I will keep him on aspirin, atorvastatin. Follow up with lipid panel. The patient is likely to undergo coronary angiography tomorrow. I will admit him in telemetry unit. 2. Essential hypertension. The patient has been started on angiotensin receptor jaye and metoprolol which I will continue. 3. History of qgr-uupoqqw-tjfmlyhww diabetes mellitus. He was not taking any medications at home since he ran out of his insulin. I will keep him on sliding scale insulin and will follow up with hemoglobin A1c. 4. Abscess on the back. It is still draining initially pus-like material and later on it turned bloody, though it has significantly decreased in the size. Culture has been performed. I will start him on oral clindamycin next. DISPOSITION: I will continue monitor patient in PVC unit. Plan of care discussed with the patient. His questions been answered. cc: Sb Hernández MD
[2019-03-11] MEDS ORDERED: CLEOCIN PO SCH (14:00)
--- NOTE | 2019-03-11 14:23 | HISTORY AND PHYSICAL ---
CHIEF COMPLAINT: Chest pain, left arm and hand pain. HISTORY OF PRESENT ILLNESS: This is a 54-year-old morbidly obese male with a history of diabetes mellitus and tobacco abuse. He presents with a 2-week history of intermittent left chest and arm pain. He reports the initial episode being 2 weeks ago while at work. He was out in the cold, and he developed a pressure type sensation just above his left clavicle, and to his left arm down to his elbow. He reports accompanying shortness of breath, diaphoresis, and nausea. It lasted roughly about 15 minutes. It did resolve with rest. He reports a second episode that was almost exactly the same that started a few days later although this episode he felt resolved in less time. This morning he got up to get ready for work, ate breakfast, sat down to watch TV, and he reported developed a sensation in his left upper chest just around his left clavicle. He stated it felt like someone was sitting on this area. Shortly after, he became diaphoretic, nauseated, warm all over, and was short of breath. He stated he had a dull ache that went into his shoulder, and down to his hand. He remained seated, and stated that this resolved on its own within about 5 minutes. Once pain and pressure resolved, all other symptoms resolved. He denied any palpitations, or any syncope. PAST MEDICAL HISTORY: 1. Diabetes mellitus for which he has been untreated. 2. Morbid obesity. PAST SURGICAL HISTORY: Denies. SOCIAL HISTORY: He smokes about a pack a day. 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 He denies any alcohol or illicit drug use. ALLERGIES: No known drug allergies. HOME MEDICATIONS: None. FAMILY HISTORY: Significant for hypertension. His mother has dementia. She is currently residing in a retirement. His father at age 82 of old age. REVIEW OF SYSTEMS: Discussed with the patient with pertinent positives stated in the HPI. He denied any syncope or dizziness, any palpitations, productive cough, any fevers or chills, recent weight loss or weight gain, any nausea, vomiting, diarrhea, constipation, black or bloody vomitus, stools, hematuria, dysuria, frequency or urgency. PHYSICAL EXAMINATION: GENERAL: This is a 54-year-old gentleman who is lying on the stretcher in the emergency room in no distress. VITAL SIGNS: Blood pressure is 125/76 with a heart rate of 87, respirations are 16, temperature is 97.9 degrees oral with O2 saturations 96 to 98% on 2 L nasal cannula. EYES: Pupils equal, round, and react to light. EOMs are intact. Sclerae anicteric. HEENT: Head is normocephalic, atraumatic. Mucous membranes are moist. NECK: Supple with trachea midline. CARDIOVASCULAR: Regular rate and rhythm. S1 and S2 appreciated. No obvious murmurs. Bilateral pretibial edema which is 1 to 2+, which he states is chronic. Calves are nontender bilateral with peripheral pulses palpable x4 extremities. PULMONARY: Breath sounds are clear with no increased work of breathing noted. Chest rises and falls and symmetric with respiration. GASTROINTESTINAL: Abdomen is soft, nontender, and nondistended. Bowel sounds in all 4 quadrants. GENITOURINARY: No CVA nor suprapubic tenderness. NEUROLOGIC: He is alert and oriented x3. SKIN: Warm and dry with a 3 mm puncture to his left mid central back area is clear. There is no redness. There is no warmth, and no drainage. He does state this is from a prior I D due to abscess. LABORATORY: WBC is 9.5 with hemoglobin 15.6, hematocrit 46.1, and platelets 179,000. Sodium 137, potassium 3.9, BUN 7, creatinine 0.9 with a glucose of 319. Hemoglobin A1c is 10.2. Troponin at 6:54 is 0.042. Troponin at 9:00 in the morning of 0.176. EKG appears to be sinus rhythm with no ischemic changes. Chest x-ray reveals no acute abnormalities. ASSESSMENT: This is a 54-year-old morbidly obese gentleman who presented to the emergency room complaining of chest pain and left arm pain, with resulting non ST-elevation myocardial infarction. PLAN: 1. Non-ST elevation myocardial infarction. Consult Cardiology. Continue to trend troponins. We will repeat EKG now. We will hold him NPO as of now until cardiac evaluation. He was given Lovenox in the emergency room along with aspirin. We will continue the aspirin. We will order lipid profile in the morning as he will be fasting. 2. Diabetes mellitus. The patient was diagnosed in September. He was given a prescription for metformin although he opted not to fill this as he did not have insurance. As the patient may have a heart catheterization, we will hold metformin. He will be placed on pattern blood glucose with sliding scale insulin. 3. History of abscess to his back which grew Streptococcus viridans with Staph hominis, oxacillin resistant. Blood cultures x2 positive in September of 2018. Start clindamycin 300 mg p.o. q.6 hours. New culture is pending. 4. Essential hypertension. We will start an ARB as well as metoprolol. 5. Tobacco use. He has been given a nicotine patch. We did discuss smoking cessation. He will be given written information with followup contacts for additional counseling. 6. Patient was evaluated, and plan was discussed with Dr. Hernández. Further treatments pending hospital course. Dictated by KATHRINE Estevez for Sb Hernández MD cc: KATHRINE Estevez MD
--- NOTE | 2019-03-11 15:06 | ECHO REPORT ---
ORDER DATE: 03/11/2019 INTERPRETING PHYSICIAN: Dr. Riley Henriquez. ECHOCARDIOGRAPHIC MEASUREMENTS: 1. Interventricular septum 1.2. 2. Left ventricular posterior wall 1.2. 3. Diastolic diameter 4.3. 4. Left atrium 3.5. 5. Aorta 3.5. SUMMARY OF THE 2-DIMENSIONAL IMAGIN. Aortic valve leaflets are trileaflet. 2. Pulmonic valve was normal. 3. Tricuspid valve was normal. 4. Mitral valve was normal. 5. Technically suboptimal study. Poor apical windows. 6. Mitral valve was normal. 7. There is trace mitral regurgitation. 8. Peak velocity across the aortic valve less than 2 m/sec. There is no aortic stenosis or regurgitation. 9. There is mild tricuspid regurgitation. Peak velocity across the tricuspid valve less than 2 m/sec. 10. Optison was used to assess left ventricular systolic function. Normal left ventricular cavity size. Mild concentric left ventricular hypertrophy. Estimated ejection fraction of 70%. 11. There is no pericardial effusion or obvious intracardiac mass or thrombus seen. cc: MD Andreina Beard CRNP
--- NOTE | 2019-03-11 15:37 | EKG Report ---
Test Performed on : 03/11/2019 2:57:03 PM Test Reason : NSTEMI Blood Pressure : / mmHG Vent. Rate : 102 BPM Atrial Rate : 102 BPM P-R Int : 144 ms QRS Dur : 098 ms QT Int : 342 ms P-R-T Axes : 034 -02 100 degrees QTc Int : 445 ms Sinus tachycardia. T wave abnormality, consider anterior ischemia Abnormal ECG Confirmed by Chang SCHROEDER, Juan ([id number]) on 03/12/2019 11:22:44 AM
[2019-03-11] MEDS ORDERED: NITROGLYCERIN SL ONE (16:23)
[2019-03-11] MEDS ORDERED: LOPRESSOR IV ONE (16:34)
--- NOTE | 2019-03-11 16:42 | EKG Report ---
Test Performed on : 03/11/2019 4:24:46 PM Test Reason : left arm pain, chest pain Blood Pressure : / mmHG Vent. Rate : 103 BPM Atrial Rate : 103 BPM P-R Int : 138 ms QRS Dur : 092 ms QT Int : 328 ms P-R-T Axes : 042 -31 025 degrees QTc Int : 429 ms Critical Test Result: STEMI Sinus tachycardia. Left axis deviation ST elevation, consider anterior injury or acute infarct ACUTE NM / STEMI Abnormal ECG When compared with ECG of 11-MAR-2019 14:57, (Unconfirmed) ST now depressed in Inferior leads ST elevation now present in Anterior leads T wave inversion no longer evident in Anterior leads Confirmed by Chang SCHROEDER, Juan ([id number]) on 03/12/2019 11:23:20 AM
[2019-03-11] MEDS ORDERED: LIPITOR PO SCH (21:00)
[2019-03-11] MEDS ORDERED: CULTURELLE PO SCH (21:00)
--- NOTE | 2019-03-11 21:03 | DISCHARGE SUMMARY ---
ADMISSION DATE: 03/11/2019 DISCHARGE DATE: 03/11/2019 DISCHARGE DISPOSITION: The patient is currently being transferred to [facility] for emergent coronary catheterization on discharge condition. The patient just had a critical alert call at about 4:30 p.m. for left shoulder and left wrist pain associated with shortness of breath and diaphoresis. His stat EKG is suggestive of dynamic ST-T changes with in fact ST elevation affecting lead V1 to V3, which are new. His troponins have been rising. DISCHARGE DIAGNOSIS: 1. Non-ST elevation myocardial infarction with dynamic ST changes affecting V1 to V3 leads. He previously had T-wave inversions in those leads and now he is developing ST elevation, though it is less than 2 mm. 2. Morbid obesity. 3. Essential hypertension. 4. Pnc-dpsgfmm-gdzvjtjjg diabetes mellitus. 5. Tobacco abuse. 6. History of back abscess. 7. History of not being on any medication at the moment. VITALS: Temperature 98.2 degrees, pulse 71, respiratory 18, blood pressure 147/78, saturating 98% room air. PHYSICAL EXAMINATION: Morbidly obese, not in acute distress. Oral cavity is moist. Air intake bilaterally equal. No wheeze, rhonchi, or crackles. S1, S2 normal. No murmur or gallop. Abdomen: Soft, nontender. No lower extremity edema. He does not have localized chest wall, left shoulder or left wrist tenderness. He has about 2 cm incision over his back where his abscess was evacuated in September 2018 which is draining mucoid material. DISCHARGE MEDICATIONS: 1. He is on atorvastatin 40 mg at nighttime, clindamycin 300 mg every 6 hours for back abscess. 2. Metoprolol 25 mg every 6 hours. 3. Aspirin 81 mg daily. 4. Losartan 25 mg daily. 5. Acetaminophen 650 mg every 6 hours. 6. Nitroglycerin 0.4 mg sublingual every 5 minutes as needed for chest pain. 7. In the morning time, he received aspirin 325 mg and enoxaparin 120 mg subcutaneously. LABS: His hemoglobin is 15.6, platelet 179,000. INR 0.9. PTT 28. His BUN is 7, creatinine 0.9, blood glucose 241. On presentation, his troponin was 0.04, which increased to 0.17 and then to 0.18. Microbiology, no new data. IMAGING: Chest x-ray in the morning time did not have any cardiopulmonary process. EKG on presentation had sinus tachycardia, nonspecific there. There were not any nonspecific changes. EKG performed at 8:[address]-T wave abnormality, consider lateral ischemia. The ST wave abnormalities were affecting lead V1, V2, aVL and 1. EKG performed at 3 p.m. had essentially T-wave inversions in lead V1 to V3. EKG performed at 4:30 p.m. had about [address]-elevation in lead V1, V2 and V3. HOSPITAL COURSE SUMMARY: Mr. Haines is a 54-year-old man with past medical history of active tobacco abuse, jmr-ekxoqru-zvwnimuil diabetes mellitus, morbid obesity, who presented to the emergency room with chief complaints of intermittent left shoulder and left wrist pain of about 2 weeks duration, which was exertional. The patient had 3 such episodes prior to experiencing another episode today morning when he was taking a shower. Associated with that he had some shortness of breath and diaphoresis. In the emergency room, he was given 325 mg of aspirin, 120 mg of enoxaparin. Hospitalist team was consulted for further management. Cardiology team was consulted considering his risk factors and anginal chest pain. His initial troponin was 0.04 which increased to 0.17 and 0.18 at about 3 hours and 8 hours after presentation. Apparently, patient had another episode of chest pain while inside the hospital and this time the new EKG had ST elevation in lead V1, V2, V3, though they were less than 2 mm. Considering he was having dynamic ST-T changes, cardiology was stat consulted and they recommended transfer patient to [facility]. TIME SPENT: More than 30 minutes of time was spent in discharging this patient. Plan of care discussed with Mr. Haines and all of his questions were answered. cc: Sb Hernández MD
[2019-03-12] MEDS ORDERED: ASPIRIN PO SCH (09:00)
== END 2019-03-11 16:50 | disposition short-term general hospital (02) | DRG 281 ==
LOC: ED 06:31 → EDIPHOLD 09:46 → 1N 12:11
PROVIDERS: ATTEND Internal Medicine